=== PATIENT | female | born 1950 | race Caucasian/White ===

== ENCOUNTER 2016-12-02 16:55 | Observation (INO) ==
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
[2016-12-02 18:09] LABS: Basophils # 0.1 K/mcL (0.0-0.2); Basophils % 0.9 %; Eosinophils # 0.1 K/mcL (0.0-0.6); Eosinophils % 1.6 %; Hematocrit 42.3 % (35.3-44.9); Hemoglobin 13.7 g/dL (11.5-15.4); Immature Granulocytes % 0.3 % (0-4); Lymphocytes # 2.2 K/mcL (0.6-4.6); Lymphocytes % 35.2 %; Mean Corpuscular HGB Conc 32.4 g/dL (31.6-35.5); Mean Corpuscular Hemoglobin 28.4 pg (28.0-33.3); Mean Corpuscular Volume 87.6 fL (83.0-100.0); Mean Platelet Volume 9.6 fL (9.4-12.4); Monocytes # 0.5 K/mcL (0.0-1.3); Monocytes % 8.3 %; Neutrophils # 3.4 K/mcL (1.6-8.9); Platelet Count 258 K/mcL (140-400); Red Blood Count 4.83 M/mcL (3.82-4.97); Red Cell Distribution Width 13.4 % (11.5-14.5); Segmented Neutrophils % 53.7 %
[2016-12-02 18:18] LABS: BUN/Creatinine Ratio 46 (6-26); Blood Urea Nitrogen 36 mg/dL (7-20); Calcium 10.1 mg/dL (8.6-10.8); Carbon Dioxide 27 mEq/L (19-29); Chloride 106 mEq/L (98-109); Glucose 83 mg/dL (70-99); Osmolality,Calculated 303 (280-300); Potassium 4.7 mEq/L (3.5-4.5); Sodium 143 mEq/L (136-145); eGFR For African Americans > 60 (> 60); eGFR For Non-African Americans > 60 (> 60)
[2016-12-02 18:19] LABS: Bilirubin,Urine Negative (Negative); Blood,Urine Trace (Negative); Clarity,Urine Clear (Clear); Color,Urine Yellow (Yellow); Glucose,Urine (UA) Normal (Normal); Ketones,Urine Negative (Negative); Leukocyte Esterase,Urine Negative (Negative); Nitrite,Urine Negative (Negative); PH,Urine 5.5 pH Units (5.0-8.0); Protein,Urine Negative (Neg-Trace); Specific Gravity,Urine 1.029 (1.010-1.025); Urobilinogen,Urine Normal (Normal)
[2016-12-02 18:20] LABS: Alanine Aminotransferase 14 Units/L (0-55); Albumin 4.1 g/dL (3.5-5.0); Alkaline Phosphatase 103 Units/L (38-126); Aspartate Amino Transferase 19 Units/L (5-34); Bilirubin,Indirect 0.1 mg/dL (0.0-1.2); Bilirubin,Total 0.2 mg/dL (0.2-1.2); Total Protein 8.1 g/dL (6.0-8.3)
[2016-12-02 18:21] LABS: Bacteria,Urine Few per hpf (None-Few); Hyaline Casts,Urine None Seen per lpf (None-Few); RBC,Urine 0-3 per hpf (0-3); Squamous Epithelial Cell,Urine Many per lpf (None-Few)
[2016-12-02 18:25] LABS: Bilirubin,Direct < 0.1 mg/dL (0.0-0.5)
[2016-12-02] MEDS ORDERED: *HR* LORazepam 2 MG/ML VIAL IVP ONE (19:39)
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
[2016-12-02] MEDS ORDERED: Naloxone 0.4 MG/ML INJ IVP PRN (22:17)
[2016-12-02] MEDS ORDERED: Ondansetron 4 MG/2 ML VIAL IVP PRN (22:17)
[2016-12-02] MEDS ORDERED: 0.9 % Sodium Chloride 1,000 ML IVC SCH (22:45)
[2016-12-02] MEDS: Melatonin 3 MG TABLET PO SCH (23:19)
[2016-12-02] MEDS: clonazePAM 1 MG TABLET PO SCH (23:19)
[2016-12-02] MEDS: Mirtazapine 15 MG TABLET PO SCH (23:19)
[2016-12-02] MEDS: Divalproex (24 HR) 500 MG TABLET PO SCH (23:19)
[2016-12-03 04:59] LABS: Basophils # 0.1 K/mcL (0.0-0.2); Eosinophils # 0.1 K/mcL (0.0-0.6); Eosinophils % 2.8 %; Hematocrit 34.9 % (35.3-44.9); Immature Granulocytes % 0.4 % (0-4); Lymphocytes # 2.3 K/mcL (0.6-4.6); Lymphocytes % 44.9 %; Mean Corpuscular Hemoglobin 28.5 pg (28.0-33.3); Mean Corpuscular Volume 86.4 fL (83.0-100.0); Mean Platelet Volume 9.4 fL (9.4-12.4); Monocytes # 0.5 K/mcL (0.0-1.3); Monocytes % 8.9 %; Neutrophils # 2.1 K/mcL (1.6-8.9); Platelet Count 185 K/mcL (140-400); Red Blood Count 4.04 M/mcL (3.82-4.97); Red Cell Distribution Width 13.5 % (11.5-14.5)
[2016-12-03 05:04] LABS: Hemoglobin 11.5 g/dL (11.5-15.4)
[2016-12-03 05:16] LABS: BUN/Creatinine Ratio 45 (6-26); Blood Urea Nitrogen 29 mg/dL (7-20); Calcium 8.9 mg/dL (8.6-10.8); Carbon Dioxide 23 mEq/L (19-29); Chloride 108 mEq/L (98-109); Glucose 94 mg/dL (70-99); Magnesium 2.1 mg/dL (1.6-2.6); Osmolality,Calculated 292 (280-300); Phosphorous 4.2 mg/dL (2.3-4.7); Sodium 138 mEq/L (136-145); eGFR For African Americans > 60 (> 60); eGFR For Non-African Americans > 60 (> 60)
[2016-12-03] MEDS: Budesonide/Formoterol 160/4.5 MDI IH SCH ×2 (07:46→20:29)
[2016-12-03] MEDS ORDERED: *HR* Rivaroxaban 10 MG TABLET PO SCH (09:00)
[2016-12-03] MEDS: Furosemide 20 MG TABLET PO SCH (10:58)
[2016-12-03] MEDS: Primidone 50 MG TABLET PO SCH (10:58)
[2016-12-03] MEDS: clonazePAM 1 MG TABLET PO SCH ×2 (10:58→14:49)
[2016-12-03] MEDS: Nicotine 21 MG PATCH.TD24 TD SCH (10:58)
[2016-12-03] MEDS: ARIPiprazole 5 MG TABLET PO SCH (10:58)
--- NOTE | 2016-12-03 14:44 | Electrocardiograph Report ---
[facility] Test Date: 2016-12-02 Pat Name: Brenda Ho Department: 102 Room: 3B47 Gender: F Pot Washer: : 1950 Requested By: Nam Rainey Order Number: [id number] Reading MD: Henrietta Martin Measurements Intervals [place] Rate: 80 P: 91 CT: 143 QRS: 50 QRSD: 97 T: 60 QT: 362 QTc: 398 Interpretive Statements SINUS RHYTHM POSSIBLE RIGHT VENTRICULAR CONDUCTION DELAY [RSR (QR) IN V1/V2] Electronically Signed On 12-03-16 14:40:19 EST by Henrietta Martin
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
[2016-12-03] MEDS: Mirtazapine 15 MG TABLET PO SCH (21:19)
[2016-12-03] MEDS: Gabapentin 100 MG CAPSULE PO SCH (21:20)
[2016-12-03] MEDS: Divalproex (24 HR) 500 MG TABLET PO SCH (21:20)
[2016-12-03] MEDS: Melatonin 3 MG TABLET PO SCH (21:20)
[2016-12-03] MEDS: *HR* Rivaroxaban 10 MG TABLET PO SCH (21:25)
[2016-12-04] MEDS: clonazePAM 1 MG TABLET PO SCH ×4 (01:22→21:46)
[2016-12-04 04:50] LABS: Basophils # 0.1 K/mcL (0.0-0.2); Basophils % 1.3 %; Eosinophils # 0.1 K/mcL (0.0-0.6); Eosinophils % 2.3 %; Hematocrit 33.5 % (35.3-44.9); Hemoglobin 10.9 g/dL (11.5-15.4); Immature Granulocytes % 0.2 % (0-4); Lymphocytes # 2.3 K/mcL (0.6-4.6); Lymphocytes % 42.5 %; Mean Corpuscular HGB Conc 32.5 g/dL (31.6-35.5); Mean Corpuscular Hemoglobin 28.8 pg (28.0-33.3); Mean Corpuscular Volume 88.6 fL (83.0-100.0); Mean Platelet Volume 9.5 fL (9.4-12.4); Monocytes # 0.4 K/mcL (0.0-1.3); Monocytes % 8.3 %; Neutrophils # 2.4 K/mcL (1.6-8.9); Platelet Count 191 K/mcL (140-400); Red Blood Count 3.78 M/mcL (3.82-4.97); Red Cell Distribution Width 13.3 % (11.5-14.5); Segmented Neutrophils % 45.4 %
[2016-12-04 05:06] LABS: BUN/Creatinine Ratio 39 (6-26); Blood Urea Nitrogen 26 mg/dL (7-20); Calcium 8.7 mg/dL (8.6-10.8); Carbon Dioxide 24 mEq/L (19-29); Chloride 108 mEq/L (98-109); Glucose 97 mg/dL (70-99); Osmolality,Calculated 293 (280-300); Potassium 4.2 mEq/L (3.5-4.5); Sodium 139 mEq/L (136-145); eGFR For African Americans > 60 (> 60); eGFR For Non-African Americans > 60 (> 60)
[2016-12-04] MEDS: Budesonide/Formoterol 160/4.5 MDI IH SCH ×2 (08:09→22:20)
[2016-12-04] MEDS: Nicotine 21 MG PATCH.TD24 TD SCH (08:51)
[2016-12-04] MEDS: Primidone 50 MG TABLET PO SCH (08:53)
[2016-12-04] MEDS: ARIPiprazole 5 MG TABLET PO SCH (08:53)
[2016-12-04] MEDS: Furosemide 20 MG TABLET PO SCH (08:54)
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
[2016-12-04] MEDS: *HR* Rivaroxaban 10 MG TABLET PO SCH (18:23)
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
[2016-12-04] MEDS: Melatonin 3 MG TABLET PO SCH (21:45)
[2016-12-04] MEDS: Gabapentin 100 MG CAPSULE PO SCH (21:45)
[2016-12-04] MEDS: Mirtazapine 15 MG TABLET PO SCH (21:45)
[2016-12-04] MEDS: Divalproex (24 HR) 500 MG TABLET PO SCH (21:45)
[2016-12-05] MEDS: Budesonide/Formoterol 160/4.5 MDI IH SCH (08:34)
[2016-12-05] MEDS: Furosemide 20 MG TABLET PO SCH (09:18)
[2016-12-05] MEDS: Nicotine 21 MG PATCH.TD24 TD SCH (09:18)
[2016-12-05] MEDS: clonazePAM 1 MG TABLET PO SCH ×2 (09:18→15:30)
[2016-12-05] MEDS: ARIPiprazole 5 MG TABLET PO SCH (09:18)
[2016-12-05] MEDS: Primidone 50 MG TABLET PO SCH (09:27)
[2016-12-05 16:01] VITALS: BP 111/76
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
== END 2016-12-05 18:06 | disposition home or self-care (01) ==
LOC: 3BNU 16:55 → EMEROO 16:55 → SUATTDRO 21:06 → 3BNU 21:30
PROVIDERS: ADMIT Internal Medicine; ATTEND Internal Medicine

== ENCOUNTER 2020-12-03 08:04 | Inpatient (IN) ==
[2020-12-03] MEDS ORDERED: Ondansetron 4 MG/2 ML VIAL IVP PRN (09:43)
[2020-12-03] MEDS ORDERED: Naloxone 0.4 MG/ML INJ IVP PRN (09:43)
[2020-12-03] MEDS ORDERED: Perflutren Lipid Microsphere 1.3 ML in 0.9 % Sodium Chloride 8.7 ML IVP PRN (09:44)
[2020-12-03] MEDS: Furosemide 20 MG/2 ML VIAL IVP SCH ×2 (10:39→17:04)
[2020-12-03] MEDS ORDERED: Digoxin Oral Liquid 125 MCG/2.5 ML ORAL.SYG GTUBE ONE (11:15)
[2020-12-03] MEDS: Ipratropium Neb 0.5 MG NEBULIZER IH SCH ×3 (11:39→21:20)
[2020-12-03] MEDS ORDERED: polyethylene glycoL 3350 17 GM POWD.PACK GTUBE PRN (11:53)
[2020-12-03] MEDS: clonazePAM 1 MG TABLET GTUBE SCH ×2 (14:32→20:49)
[2020-12-03] MEDS: *HR* OxyCODONE Immed Rel 5 MG TABLET GTUBE SCH ×2 (14:32→20:50)
[2020-12-03 19:16] LABS: Adenovirus Not Detected (Not Detect); Bordetella Pertussis Not Detected (Not Detect); Chlamydophila pneumoniae Not Detected (Not Detect); Coronavirus 229E Not Detected (Not Detect); Coronavirus HKU1 Not Detected (Not Detect); Coronavirus NL63 Not Detected (Not Detect); Coronavirus OC43 Not Detected (Not Detect); Human Metapneumovirus Not Detected (Not Detect); Human Rhinovirus/Enterovirus Not Detected (Not Detect); Influenza A Subtype 2009 H1 Not Detected (Not Detect); Influenza B Not Detected (Not Detect); Mycoplasma pneumoniae Not Detected (Not Detect); Parainfluenza Virus 1 Not Detected (Not Detect); Parainfluenza Virus 2 Not Detected (Not Detect); Parainfluenza Virus 3 Not Detected (Not Detect); Parainfluenza Virus 4 Not Detected (Not Detect); Respiratory Syncytial Virus Not Detected (Not Detect); SARS-CoV-2 Not Detected (Not Detect)
[2020-12-03] MEDS: Baclofen 10 MG TABLET GTUBE SCH (20:49)
[2020-12-03] MEDS: Valproic Acid Oral Soln 250 MG/5 ML UDC GTUBE SCH (20:49)
[2020-12-03] MEDS: Melatonin 3 MG TABLET GTUBE SCH (20:50)
[2020-12-03] MEDS: traZODone 50 MG TABLET GTUBE SCH (20:50)
[2020-12-03] MEDS: Famotidine 20 MG TABLET GTUBE SCH (20:50)
[2020-12-03] MEDS: Magnesium Oxide 400 MG TABLET GTUBE SCH (20:51)
[2020-12-03] MEDS: Apixaban 5 MG TABLET GTUBE SCH (20:51)
[2020-12-03] MEDS: HydrOXYzine SYP 10 MG/5 ML UDC GTUBE SCH (20:51)
[2020-12-03] MEDS ORDERED: Furosemide 20 MG/2 ML VIAL IVP SCH (21:00)
[2020-12-04] MEDS: Ipratropium Neb 0.5 MG NEBULIZER IH SCH ×4 (03:23→22:16)
[2020-12-04 06:54] LABS: Basophils # 0.1 K/mcL (0.0-0.2); Eosinophils # 0.1 K/mcL (0.0-0.6); Eosinophils % 1.3 %; Hematocrit 42.4 % (35.3-44.9); Hemoglobin 13.6 g/dL (11.5-15.4); Immature Granulocytes % 0.3 % (0-4); Lymphocytes % 22.6 %; Mean Corpuscular HGB Conc 32.1 g/dL (31.6-35.5); Mean Corpuscular Volume 96.6 fL (83.0-100.0); Mean Platelet Volume 11.3 fL (9.4-12.4); Monocytes # 0.9 K/mcL (0.0-1.3); Monocytes % 9.9 %; Neutrophils # 5.6 K/mcL (1.6-8.9); Platelet Count 206 K/mcL (140-400); Red Blood Count 4.39 M/mcL (3.82-4.97); Red Cell Distribution Width 13.5 % (11.5-14.5); Segmented Neutrophils % 64.9 %; White Blood Count 8.6 K/mcL (4.3-11.1)
[2020-12-04 07:26] LABS: BUN/Creatinine Ratio 70 (6-26); Blood Urea Nitrogen 35 mg/dL (8-23); Calcium 9.2 mg/dL (8.6-10.3); Carbon Dioxide 33 mEq/L (23-29); Chloride 95 mEq/L (98-107); Glucose 135 mg/dL (70-105); Osmolality,Calculated 294 (280-300); Potassium 3.7 mEq/L (3.5-5.1); Sodium 137 mEq/L (136-145); eGFR For African Americans > 60 (> 60); eGFR For Non-African Americans > 60 (> 60)
[2020-12-04] MEDS: Valproic Acid Oral Soln 250 MG/5 ML UDC GTUBE SCH (09:18)
[2020-12-04] MEDS: clonazePAM 1 MG TABLET GTUBE SCH ×2 (09:21→15:35)
[2020-12-04] MEDS: *HR* Digoxin 0.125 MG TABLET GTUBE SCH (09:21)
[2020-12-04] MEDS: Magnesium Oxide 400 MG TABLET GTUBE SCH (09:21)
[2020-12-04] MEDS: Furosemide 20 MG/2 ML VIAL IVP SCH ×2 (09:22→15:34)
[2020-12-04] MEDS: Apixaban 5 MG TABLET GTUBE SCH (09:22)
[2020-12-04] MEDS: HydrOXYzine SYP 10 MG/5 ML UDC GTUBE SCH (09:22)
[2020-12-04] MEDS: Baclofen 10 MG TABLET GTUBE SCH (09:22)
[2020-12-04] MEDS: *HR* OxyCODONE Immed Rel 5 MG TABLET GTUBE SCH ×2 (09:22→15:35)
[2020-12-04] MEDS ORDERED: *HR* Metoprolol 5 MG/5 ML VIAL IVP ONE (10:57)
[2020-12-04] MEDS ORDERED: *HR* LORazepam 2 MG/ML VIAL IVP STA (17:07)
[2020-12-04 17:56] LABS: VBG HCO3 41 mEq/L (21-27); VBG PCO2 67 mmHg (41-51); VBG PH 7.39 pH Units (7.32-7.42); VBG PO2 79 mmHg (25-50)
[2020-12-04] MEDS ORDERED: MethylPREDNISolone 40 MG/ML VIAL IVP STA (17:57)
[2020-12-04] MEDS ORDERED: Haloperidol Lactate 5 MG/ML VIAL IVP ONE (18:21)
[2020-12-04] MEDS: Dexmedetomidine HCl 400 MCG/100 ML MLS IVC SCH (19:20)
[2020-12-04] MEDS: Levalbuterol Neb 1.25 MG/3 ML IH SCH ×2 (19:54→22:16)
[2020-12-04] MEDS ORDERED: 0.9 % Sodium Chloride 1,000 ML IVC SCH (20:15)
[2020-12-04] MEDS ORDERED: E-Z-PAQUE (BARIUM SULF) SUSP 1 BOTTLE PO ONE (21:37)
[2020-12-04] MEDS ORDERED: E-Z-HD (BARIUM SULF) SUSPENSION PO ONE (21:37)
[2020-12-05] MEDS: Famotidine 20 MG TABLET GTUBE SCH ×2 (00:44→21:10)
[2020-12-05] MEDS: Apixaban 5 MG TABLET GTUBE SCH ×3 (00:45→21:09)
[2020-12-05] MEDS: Magnesium Oxide 400 MG TABLET GTUBE SCH ×3 (00:45→21:11)
[2020-12-05] MEDS: clonazePAM 1 MG TABLET GTUBE SCH ×4 (00:45→21:13)
[2020-12-05] MEDS: traZODone 50 MG TABLET GTUBE SCH ×2 (00:45→21:12)
[2020-12-05] MEDS: Baclofen 10 MG TABLET GTUBE SCH ×3 (00:47→21:08)
[2020-12-05] MEDS: Valproic Acid Oral Soln 250 MG/5 ML UDC GTUBE SCH ×3 (00:48→21:04)
[2020-12-05 00:55] LABS: Basophils # 0.1 K/mcL (0.0-0.2); Basophils % 0.7 %; Eosinophils # 0.2 K/mcL (0.0-0.6); Eosinophils % 2.4 %; Hematocrit 39.2 % (35.3-44.9); Hemoglobin 12.6 g/dL (11.5-15.4); Immature Granulocytes % 0.2 % (0-4); Lymphocytes # 1.8 K/mcL (0.6-4.6); Lymphocytes % 22.5 %; Mean Corpuscular HGB Conc 32.1 g/dL (31.6-35.5); Mean Corpuscular Hemoglobin 30.7 pg (28.0-33.3); Mean Corpuscular Volume 95.6 fL (83.0-100.0); Mean Platelet Volume 10.9 fL (9.4-12.4); Monocytes % 12.3 %; Platelet Count 185 K/mcL (140-400); Red Cell Distribution Width 13.2 % (11.5-14.5); Segmented Neutrophils % 61.9 %; White Blood Count 8.1 K/mcL (4.3-11.1)
[2020-12-05] MEDS: Melatonin 3 MG TABLET GTUBE SCH ×2 (00:57→21:12)
[2020-12-05] MEDS: *HR* OxyCODONE Immed Rel 5 MG TABLET GTUBE SCH ×4 (00:58→21:13)
[2020-12-05] MEDS: HydrOXYzine SYP 10 MG/5 ML UDC GTUBE SCH ×3 (01:13→21:05)
[2020-12-05 01:16] LABS: BUN/Creatinine Ratio 64 (6-26); Blood Urea Nitrogen 34 mg/dL (8-23); Calcium 8.6 mg/dL (8.6-10.3); Carbon Dioxide 40 mEq/L (23-29); Chloride 94 mEq/L (98-107); Glucose 105 mg/dL (70-105); Osmolality,Calculated 298 (280-300); Potassium 3.7 mEq/L (3.5-5.1); Sodium 140 mEq/L (136-145); eGFR For African Americans > 60 (> 60); eGFR For Non-African Americans > 60 (> 60)
[2020-12-05] MEDS: Levalbuterol Neb 1.25 MG/3 ML IH SCH ×4 (03:25→22:23)
[2020-12-05] MEDS: Ipratropium Neb 0.5 MG NEBULIZER IH SCH ×4 (03:25→22:23)
[2020-12-05] MEDS: Furosemide 20 MG/2 ML VIAL IVP SCH ×2 (10:09→17:27)
[2020-12-05] MEDS: Dexmedetomidine HCl 400 MCG/100 ML MLS IVC SCH (18:37)
[2020-12-06 01:41] LABS: Basophils % 0.3 %; Eosinophils # 0.2 K/mcL (0.0-0.6); Eosinophils % 1.7 %; Hematocrit 41.8 % (35.3-44.9); Hemoglobin 13.3 g/dL (11.5-15.4); Immature Granulocytes % 0.3 % (0-4); Lymphocytes # 2.2 K/mcL (0.6-4.6); Lymphocytes % 19.9 %; Mean Corpuscular HGB Conc 31.8 g/dL (31.6-35.5); Mean Corpuscular Hemoglobin 30.2 pg (28.0-33.3); Mean Platelet Volume 11.3 fL (9.4-12.4); Monocytes % 9.1 %; Neutrophils # 7.5 K/mcL (1.6-8.9); Platelet Count 204 K/mcL (140-400); Red Cell Distribution Width 13.2 % (11.5-14.5); Segmented Neutrophils % 68.7 %
[2020-12-06 02:00] LABS: BUN/Creatinine Ratio 70 (6-26); Blood Urea Nitrogen 32 mg/dL (8-23); Calcium 8.6 mg/dL (8.6-10.3); Carbon Dioxide 38 mEq/L (23-29); Chloride 93 mEq/L (98-107); Glucose 119 mg/dL (70-105); Osmolality,Calculated 294 (280-300); Potassium 3.7 mEq/L (3.5-5.1); Sodium 138 mEq/L (136-145); eGFR For African Americans > 60 (> 60); eGFR For Non-African Americans > 60 (> 60)
[2020-12-06] MEDS: Ipratropium Neb 0.5 MG NEBULIZER IH SCH ×4 (03:53→22:03)
[2020-12-06] MEDS: Levalbuterol Neb 1.25 MG/3 ML IH SCH ×4 (03:53→22:03)
[2020-12-06] MEDS: Furosemide 20 MG/2 ML VIAL IVP SCH ×2 (08:57→15:42)
[2020-12-06] MEDS: Valproic Acid Oral Soln 250 MG/5 ML UDC GTUBE SCH ×2 (08:57→20:46)
[2020-12-06] MEDS: Baclofen 10 MG TABLET GTUBE SCH ×2 (08:58→20:44)
[2020-12-06] MEDS: Magnesium Oxide 400 MG TABLET GTUBE SCH ×2 (08:59→20:43)
[2020-12-06] MEDS: clonazePAM 1 MG TABLET GTUBE SCH ×3 (08:59→20:44)
[2020-12-06] MEDS: Apixaban 5 MG TABLET GTUBE SCH ×2 (08:59→20:44)
[2020-12-06] MEDS: *HR* OxyCODONE Immed Rel 5 MG TABLET GTUBE SCH ×3 (08:59→20:43)
[2020-12-06] MEDS: HydrOXYzine SYP 10 MG/5 ML UDC GTUBE SCH ×2 (09:00→20:47)
[2020-12-06] MEDS ORDERED: Bisacodyl 10 MG RECTAL SUPPOSITORY RC PRN (13:34)
[2020-12-06] MEDS: traZODone 50 MG TABLET GTUBE SCH (20:43)
[2020-12-06] MEDS: Famotidine 20 MG TABLET GTUBE SCH (20:43)
[2020-12-06] MEDS: Melatonin 3 MG TABLET GTUBE SCH (20:44)
[2020-12-07] MEDS: Dexmedetomidine HCl 400 MCG/100 ML MLS IVC SCH (03:24)
[2020-12-07] MEDS: Levalbuterol Neb 1.25 MG/3 ML IH SCH ×4 (04:16→22:24)
[2020-12-07] MEDS: Ipratropium Neb 0.5 MG NEBULIZER IH SCH ×4 (04:16→22:24)
[2020-12-07] MEDS ORDERED: *HR* Metoprolol 5 MG/5 ML VIAL IVP ONE (05:12)
[2020-12-07] MEDS: HydrOXYzine SYP 10 MG/5 ML UDC GTUBE SCH ×2 (09:05→20:05)
[2020-12-07] MEDS: Furosemide 20 MG/2 ML VIAL IVP SCH ×2 (09:06→16:49)
[2020-12-07] MEDS: Baclofen 10 MG TABLET GTUBE SCH ×2 (09:07→20:03)
[2020-12-07] MEDS: Valproic Acid Oral Soln 250 MG/5 ML UDC GTUBE SCH ×2 (09:07→20:04)
[2020-12-07] MEDS: Magnesium Oxide 400 MG TABLET GTUBE SCH ×2 (09:07→20:02)
[2020-12-07] MEDS: *HR* OxyCODONE Immed Rel 5 MG TABLET GTUBE SCH ×3 (09:08→20:02)
[2020-12-07] MEDS: clonazePAM 1 MG TABLET GTUBE SCH ×3 (09:08→20:03)
[2020-12-07] MEDS: Apixaban 5 MG TABLET GTUBE SCH ×2 (09:08→20:03)
[2020-12-07] MEDS: *HR* Digoxin 0.125 MG TABLET GTUBE SCH (09:17)
[2020-12-07 12:43] LABS: Hematocrit 43.2 % (35.3-44.9); Hemoglobin 13.9 g/dL (11.5-15.4); Mean Corpuscular HGB Conc 32.2 g/dL (31.6-35.5); Mean Corpuscular Hemoglobin 29.8 pg (28.0-33.3); Mean Corpuscular Volume 92.7 fL (83.0-100.0); Mean Platelet Volume 11.1 fL (9.4-12.4); Platelet Count 248 K/mcL (140-400); Red Blood Count 4.66 M/mcL (3.82-4.97); Red Cell Distribution Width 13.3 % (11.5-14.5)
[2020-12-07 12:45] LABS: White Blood Count 18.6 K/mcL (4.3-11.1)
[2020-12-07 13:19] LABS: Alanine Aminotransferase 13 Units/L (7-52); Albumin 3.5 g/dL (3.5-5.7); Albumin/Globulin Ratio 1.3 (1.1-2.2); Alkaline Phosphatase 61 Units/L (34-104); Aspartate Amino Transferase 18 Units/L (13-39); BUN/Creatinine Ratio 56 (6-26); Bilirubin,Total 0.5 mg/dL (0.3-1.0); Blood Urea Nitrogen 22 mg/dL (8-23); Carbon Dioxide 39 mEq/L (23-29); Chloride 89 mEq/L (98-107); Globulin 2.8 g/dL (2.4-3.5); Glucose 166 mg/dL (70-105); Osmolality,Calculated 287 (280-300); Potassium 3.2 mEq/L (3.5-5.1); Sodium 135 mEq/L (136-145); Total Protein 6.3 g/dL (6.4-8.9); eGFR For African Americans > 60 (> 60); eGFR For Non-African Americans > 60 (> 60)
[2020-12-07] MEDS ORDERED: Potassium Chloride 40 MEQ, Lidocaine 1% 2 ML in 0.9 % Sodium Chloride 500 ML IVPB ONE (13:52)
[2020-12-07] MEDS ORDERED: Potassium Chloride Elixir 20 MEQ/15 ML UDC GTUBE ONE (14:02)
[2020-12-07 16:56] LABS: Lactate Dehydrogenase 210 Units/L (140-271)
[2020-12-07] MEDS: Famotidine 20 MG TABLET GTUBE SCH (20:02)
[2020-12-07] MEDS: traZODone 50 MG TABLET GTUBE SCH (20:03)
[2020-12-07] MEDS: Melatonin 3 MG TABLET GTUBE SCH (20:03)
[2020-12-08 01:10] LABS: Hematocrit 43.1 % (35.3-44.9); Mean Corpuscular HGB Conc 32.5 g/dL (31.6-35.5); Mean Corpuscular Hemoglobin 30.6 pg (28.0-33.3); Mean Corpuscular Volume 94.3 fL (83.0-100.0); Mean Platelet Volume 11.1 fL (9.4-12.4); Platelet Count 253 K/mcL (140-400); Red Blood Count 4.57 M/mcL (3.82-4.97); Red Cell Distribution Width 13.3 % (11.5-14.5)
[2020-12-08 01:31] LABS: Albumin 3.4 g/dL (3.5-5.7); Albumin/Globulin Ratio 1.2 (1.1-2.2); Bilirubin,Direct 0.1 mg/dL (0.0-0.2); Bilirubin,Indirect 0.3 mg/dL (0.0-1.0); Bilirubin,Total 0.4 mg/dL (0.3-1.0); Globulin 2.9 g/dL (2.4-3.5); Total Protein 6.3 g/dL (6.4-8.9)
[2020-12-08 01:32] LABS: BUN/Creatinine Ratio 59 (6-26); Blood Urea Nitrogen 26 mg/dL (8-23); Carbon Dioxide 36 mEq/L (23-29); Chloride 91 mEq/L (98-107); Glucose 131 mg/dL (70-105); Osmolality,Calculated 289 (280-300); Potassium 3.3 mEq/L (3.5-5.1); Sodium 136 mEq/L (136-145); eGFR For African Americans > 60 (> 60); eGFR For Non-African Americans > 60 (> 60)
[2020-12-08] MEDS: Levalbuterol Neb 1.25 MG/3 ML IH SCH ×4 (04:26→23:10)
[2020-12-08] MEDS: Ipratropium Neb 0.5 MG NEBULIZER IH SCH ×4 (04:26→23:10)
[2020-12-08] MEDS: Valproic Acid Oral Soln 250 MG/5 ML UDC GTUBE SCH ×2 (09:08→20:26)
[2020-12-08] MEDS: Psyllium 1 PACKET POWD.PACK GTUBE SCH ×3 (09:09→20:27)
[2020-12-08] MEDS: HydrOXYzine SYP 10 MG/5 ML UDC GTUBE SCH ×2 (09:09→20:21)
[2020-12-08] MEDS: *HR* OxyCODONE Immed Rel 5 MG TABLET GTUBE SCH ×3 (09:11→20:27)
[2020-12-08] MEDS: Magnesium Oxide 400 MG TABLET GTUBE SCH ×2 (09:12→20:26)
[2020-12-08] MEDS: Apixaban 5 MG TABLET GTUBE SCH ×2 (09:12→20:22)
[2020-12-08] MEDS: clonazePAM 1 MG TABLET GTUBE SCH ×3 (09:12→20:22)
[2020-12-08] MEDS: Baclofen 10 MG TABLET GTUBE SCH ×2 (09:12→20:26)
[2020-12-08] MEDS: Furosemide 20 MG/2 ML VIAL IVP SCH ×2 (09:13→17:20)
[2020-12-08] MEDS ORDERED: Potassium Chloride Elixir 20 MEQ/15 ML UDC GTUBE ONE (14:31)
[2020-12-08] MEDS: Famotidine 20 MG TABLET GTUBE SCH (20:21)
[2020-12-08] MEDS: Melatonin 3 MG TABLET GTUBE SCH (20:26)
[2020-12-08] MEDS: traZODone 50 MG TABLET GTUBE SCH (20:27)
[2020-12-09 01:33] LABS: Hematocrit 42.2 % (35.3-44.9); Hemoglobin 13.5 g/dL (11.5-15.4); Mean Corpuscular Hemoglobin 29.9 pg (28.0-33.3); Mean Corpuscular Volume 93.4 fL (83.0-100.0); Mean Platelet Volume 11.2 fL (9.4-12.4); Platelet Count 249 K/mcL (140-400); Red Blood Count 4.52 M/mcL (3.82-4.97); Red Cell Distribution Width 13.2 % (11.5-14.5); White Blood Count 11.3 K/mcL (4.3-11.1)
[2020-12-09 01:54] LABS: Alanine Aminotransferase 16 Units/L (7-52); Albumin 3.3 g/dL (3.5-5.7); Albumin/Globulin Ratio 1.1 (1.1-2.2); Alkaline Phosphatase 62 Units/L (34-104); Aspartate Amino Transferase 20 Units/L (13-39); BUN/Creatinine Ratio 63 (6-26); Bilirubin,Total 0.3 mg/dL (0.3-1.0); Blood Urea Nitrogen 31 mg/dL (8-23); Carbon Dioxide 35 mEq/L (23-29); Chloride 93 mEq/L (98-107); Globulin 2.9 g/dL (2.4-3.5); Glucose 132 mg/dL (70-105); Osmolality,Calculated 292 (280-300); Potassium 3.5 mEq/L (3.5-5.1); Sodium 137 mEq/L (136-145); Total Protein 6.2 g/dL (6.4-8.9); eGFR For African Americans > 60 (> 60); eGFR For Non-African Americans > 60 (> 60)
[2020-12-09] MEDS: Levalbuterol Neb 1.25 MG/3 ML IH SCH ×4 (03:53→22:46)
[2020-12-09] MEDS: Ipratropium Neb 0.5 MG NEBULIZER IH SCH ×4 (03:53→22:46)
[2020-12-09] MEDS: Magnesium Oxide 400 MG TABLET GTUBE SCH ×2 (10:28→20:41)
[2020-12-09] MEDS: clonazePAM 1 MG TABLET GTUBE SCH ×3 (10:28→20:42)
[2020-12-09] MEDS: Apixaban 5 MG TABLET GTUBE SCH ×2 (10:29→20:42)
[2020-12-09] MEDS: *HR* OxyCODONE Immed Rel 5 MG TABLET GTUBE SCH ×3 (10:29→20:42)
[2020-12-09] MEDS: Baclofen 10 MG TABLET GTUBE SCH ×2 (10:29→20:41)
[2020-12-09] MEDS: Valproic Acid Oral Soln 250 MG/5 ML UDC GTUBE SCH ×2 (10:29→20:43)
[2020-12-09] MEDS: Furosemide 20 MG/2 ML VIAL IVP SCH ×2 (10:30→17:49)
[2020-12-09] MEDS: HydrOXYzine SYP 10 MG/5 ML UDC GTUBE SCH ×2 (10:30→20:42)
[2020-12-09] MEDS: Psyllium 1 PACKET POWD.PACK GTUBE SCH ×3 (13:31→20:42)
[2020-12-09] MEDS: traZODone 50 MG TABLET GTUBE SCH (20:41)
[2020-12-09] MEDS: Melatonin 3 MG TABLET GTUBE SCH (20:41)
[2020-12-09] MEDS: Famotidine 20 MG TABLET GTUBE SCH (20:41)
[2020-12-10 01:37] LABS: Hematocrit 41.7 % (35.3-44.9); Hemoglobin 13.5 g/dL (11.5-15.4); Mean Corpuscular HGB Conc 32.4 g/dL (31.6-35.5); Mean Corpuscular Hemoglobin 30.6 pg (28.0-33.3); Mean Corpuscular Volume 94.6 fL (83.0-100.0); Mean Platelet Volume 10.9 fL (9.4-12.4); Platelet Count 246 K/mcL (140-400); Red Blood Count 4.41 M/mcL (3.82-4.97); White Blood Count 12.2 K/mcL (4.3-11.1)
[2020-12-10 01:54] LABS: BUN/Creatinine Ratio 70 (6-26); Blood Urea Nitrogen 30 mg/dL (8-23); Calcium 9.1 mg/dL (8.6-10.3); Carbon Dioxide 36 mEq/L (23-29); Chloride 92 mEq/L (98-107); Glucose 129 mg/dL (70-105); Osmolality,Calculated 286 (280-300); Potassium 3.5 mEq/L (3.5-5.1); Sodium 134 mEq/L (136-145); eGFR For African Americans > 60 (> 60); eGFR For Non-African Americans > 60 (> 60)
[2020-12-10] MEDS: Levalbuterol Neb 1.25 MG/3 ML IH SCH ×4 (03:49→22:03)
[2020-12-10] MEDS: Ipratropium Neb 0.5 MG NEBULIZER IH SCH ×4 (03:49→22:03)
[2020-12-10] MEDS: Magnesium Oxide 400 MG TABLET GTUBE SCH ×2 (08:04→20:23)
[2020-12-10] MEDS: Baclofen 10 MG TABLET GTUBE SCH ×2 (08:05→20:23)
[2020-12-10] MEDS: clonazePAM 1 MG TABLET GTUBE SCH ×3 (08:05→20:24)
[2020-12-10] MEDS: *HR* OxyCODONE Immed Rel 5 MG TABLET GTUBE SCH ×3 (08:06→20:24)
[2020-12-10] MEDS: Apixaban 5 MG TABLET GTUBE SCH ×2 (08:06→20:23)
[2020-12-10] MEDS: HydrOXYzine SYP 10 MG/5 ML UDC GTUBE SCH ×2 (08:08→20:26)
[2020-12-10] MEDS: Valproic Acid Oral Soln 250 MG/5 ML UDC GTUBE SCH ×2 (08:08→20:26)
[2020-12-10] MEDS: Psyllium 1 PACKET POWD.PACK GTUBE SCH ×3 (08:10→20:26)
[2020-12-10] MEDS: Furosemide 20 MG/2 ML VIAL IVP SCH ×2 (08:10→17:57)
[2020-12-10] MEDS: Famotidine 20 MG TABLET GTUBE SCH (20:23)
[2020-12-10] MEDS: Melatonin 3 MG TABLET GTUBE SCH (20:25)
[2020-12-10] MEDS: traZODone 50 MG TABLET GTUBE SCH (20:27)
[2020-12-11] MEDS: Levalbuterol Neb 1.25 MG/3 ML IH SCH ×4 (03:39→21:58)
[2020-12-11] MEDS: Ipratropium Neb 0.5 MG NEBULIZER IH SCH ×4 (03:39→21:58)
[2020-12-11] MEDS: Psyllium 1 PACKET POWD.PACK GTUBE SCH ×3 (09:17→21:17)
[2020-12-11] MEDS: Furosemide 20 MG/2 ML VIAL IVP SCH ×2 (09:20→18:48)
[2020-12-11] MEDS: *HR* Digoxin 0.125 MG TABLET GTUBE SCH (09:23)
[2020-12-11] MEDS: Magnesium Oxide 400 MG TABLET GTUBE SCH ×2 (09:23→21:19)
[2020-12-11] MEDS: Valproic Acid Oral Soln 250 MG/5 ML UDC GTUBE SCH ×2 (09:23→21:17)
[2020-12-11] MEDS: Baclofen 10 MG TABLET GTUBE SCH ×2 (09:24→21:19)
[2020-12-11] MEDS: *HR* OxyCODONE Immed Rel 5 MG TABLET GTUBE SCH ×3 (09:25→21:19)
[2020-12-11] MEDS: Apixaban 5 MG TABLET GTUBE SCH ×2 (09:25→21:19)
[2020-12-11] MEDS: HydrOXYzine SYP 10 MG/5 ML UDC GTUBE SCH ×2 (09:25→21:16)
[2020-12-11] MEDS: clonazePAM 1 MG TABLET GTUBE SCH ×3 (09:25→21:18)
[2020-12-11 17:37] LABS: Adenovirus Not Detected (Not Detect); Bordetella Pertussis Not Detected (Not Detect); Chlamydophila pneumoniae Not Detected (Not Detect); Coronavirus 229E Not Detected (Not Detect); Coronavirus HKU1 Not Detected (Not Detect); Coronavirus NL63 Not Detected (Not Detect); Coronavirus OC43 Not Detected (Not Detect); Human Metapneumovirus Not Detected (Not Detect); Human Rhinovirus/Enterovirus Not Detected (Not Detect); Influenza A Subtype 2009 H1 Not Detected (Not Detect); Influenza B Not Detected (Not Detect); Mycoplasma pneumoniae Not Detected (Not Detect); Parainfluenza Virus 1 Not Detected (Not Detect); Parainfluenza Virus 2 Not Detected (Not Detect); Parainfluenza Virus 3 Not Detected (Not Detect); Parainfluenza Virus 4 Not Detected (Not Detect); Respiratory Syncytial Virus Not Detected (Not Detect); SARS-CoV-2 Not Detected (Not Detect)
[2020-12-11] MEDS: Famotidine 20 MG TABLET GTUBE SCH (21:19)
[2020-12-11 21:20] VITALS: BP 95/88
[2020-12-11] MEDS: traZODone 50 MG TABLET GTUBE SCH (21:20)
[2020-12-11] MEDS: Melatonin 3 MG TABLET GTUBE SCH (21:20)
== END 2020-12-11 23:20 | DRG 871 ==
LOC: 2ANU 09:34 → INTOOBSV 09:34 → 2NNU 12-04 19:16
PROVIDERS: ADMIT Internal Medicine; ATTEND Internal Medicine

== ENCOUNTER 2020-12-25 09:14 | Inpatient (IN) ==
[2020-12-25 10:05] LABS: ABG Base Excess 8 mEq/L (-2 to 3); ABG HCO3 36 mEq/L (21-27); ABG Oxygen Saturation 90 % (95-98); ABG PCO2 66 mmHg (35-45); ABG PH 7.35 pH Units (7.32-7.45); ABG PO2 65 mmHg (85-104); ABG TCO2 38 mEq/L (20-26)
[2020-12-25 10:31] LABS: Basophils # 0.1 K/mcL (0.0-0.2); Basophils % 0.4 %; Eosinophils % 0.3 %; Hemoglobin 12.5 g/dL (11.5-15.4); Immature Granulocytes % 0.3 % (0-4); Lymphocytes # 1.8 K/mcL (0.6-4.6); Lymphocytes % 15.2 %; Mean Corpuscular HGB Conc 32.1 g/dL (31.6-35.5); Mean Corpuscular Hemoglobin 30.5 pg (28.0-33.3); Mean Corpuscular Volume 95.1 fL (83.0-100.0); Mean Platelet Volume 10.1 fL (9.4-12.4); Monocytes # 0.8 K/mcL (0.0-1.3); Monocytes % 6.7 %; Neutrophils # 8.9 K/mcL (1.6-8.9); Nucleated Red Blood Cells 0.2 /100 WBC (0); Platelet Count 295 K/mcL (140-400); Red Cell Distribution Width 13.1 % (11.5-14.5); Segmented Neutrophils % 77.1 %; White Blood Count 11.6 K/mcL (4.3-11.1)
[2020-12-25 10:53] LABS: BUN/Creatinine Ratio 43 (6-26); Blood Urea Nitrogen 20 mg/dL (8-23); Calcium 8.7 mg/dL (8.6-10.3); Carbon Dioxide 31 mEq/L (23-29); Chloride 96 mEq/L (98-107); Glucose 158 mg/dL (70-105); Osmolality,Calculated 282 (280-300); Potassium 5.1 mEq/L (3.5-5.1); Sodium 133 mEq/L (136-145); Troponin I 0.03 ng/mL (< 0.04); eGFR For African Americans > 60 (> 60); eGFR For Non-African Americans > 60 (> 60)
[2020-12-25] MEDS ORDERED: Furosemide 40 MG/4 ML VIAL IVP ONE (11:25)
[2020-12-25] MEDS ORDERED: levoFLOXacin 750 MG/150 ML 750 MG/150 ML BAG IVPB ONE (11:25)
[2020-12-25] MEDS ORDERED: Naloxone 0.4 MG/ML INJ IVP PRN (11:43)
[2020-12-25] MEDS: Dexmedetomidine HCl 400 MCG/100 ML MLS IVC SCH (12:27)
[2020-12-25 14:42] LABS: Adenovirus Not Detected (Not Detect); Bordetella Pertussis Not Detected (Not Detect); Chlamydophila pneumoniae Not Detected (Not Detect); Coronavirus 229E Not Detected (Not Detect); Coronavirus HKU1 Not Detected (Not Detect); Coronavirus NL63 Not Detected (Not Detect); Coronavirus OC43 Not Detected (Not Detect); Human Metapneumovirus Not Detected (Not Detect); Human Rhinovirus/Enterovirus Not Detected (Not Detect); Influenza A Subtype 2009 H1 Not Detected (Not Detect); Influenza B Not Detected (Not Detect); Mycoplasma pneumoniae Not Detected (Not Detect); Parainfluenza Virus 1 Not Detected (Not Detect); Parainfluenza Virus 2 Not Detected (Not Detect); Parainfluenza Virus 3 Not Detected (Not Detect); Parainfluenza Virus 4 Not Detected (Not Detect); Respiratory Syncytial Virus Not Detected (Not Detect); SARS-CoV-2 Not Detected (Not Detect)
[2020-12-25] MEDS: Ipratropium 1 PUFF INHALER IH SCH ×3 (16:00→22:12)
[2020-12-25] MEDS ORDERED: Isovue-370 500 ML BOTTLE IVP ONE (16:52)
[2020-12-25] MEDS: clonazePAM 1 MG TABLET GTUBE SCH ×2 (16:57→21:44)
[2020-12-25] MEDS: MethylPREDNISolone 40 MG/ML VIAL IVP SCH ×2 (17:27→18:37)
[2020-12-25] MEDS: traZODone 50 MG TABLET GTUBE SCH (21:43)
[2020-12-25] MEDS: Baclofen 10 MG TABLET GTUBE SCH (21:44)
[2020-12-25] MEDS: Furosemide 40 MG/4 ML VIAL IVP SCH (21:44)
[2020-12-25] MEDS: Apixaban 5 MG TABLET GTUBE SCH (21:44)
[2020-12-25 22:11] LABS: Amorphous Sediment,Urine Few per hpf (None-Few); Bilirubin,Urine Negative (Negative); Blood,Urine Trace (Negative); Clarity,Urine Clear (Clear); Color,Urine Light-Yellow (Yellow); Glucose,Urine (UA) Normal (Normal); Ketones,Urine Negative (Negative); Leukocyte Esterase,Urine Large (Negative); Mucus,Urine Few per lpf (None-Few); Nitrite,Urine Negative (Negative); PH,Urine 8.5 pH Units (5.0-8.0); Protein,Urine 30 mg/dL (Neg-Trace); RBC,Urine 15-30 per hpf (0-3); Specific Gravity,Urine > 1.030 (1.010-1.025); Squamous Epithelial Cell,Urine Few per hpf (None-Few); Urobilinogen,Urine Normal (Normal); WBC,Urine 50-100 per hpf (0-3)
[2020-12-26] MEDS: Ipratropium 1 PUFF INHALER IH SCH ×4 (04:02→22:07)
[2020-12-26 05:48] LABS: Hemoglobin 13.2 g/dL (11.5-15.4); Mean Corpuscular Hemoglobin 30.5 pg (28.0-33.3); Mean Corpuscular Volume 92.4 fL (83.0-100.0); Mean Platelet Volume 10.2 fL (9.4-12.4); Platelet Count 264 K/mcL (140-400); Red Blood Count 4.33 M/mcL (3.82-4.97); Red Cell Distribution Width 12.9 % (11.5-14.5); White Blood Count 9.1 K/mcL (4.3-11.1)
[2020-12-26] MEDS: MethylPREDNISolone 40 MG/ML VIAL IVP SCH ×2 (06:04→14:31)
[2020-12-26 06:17] LABS: BUN/Creatinine Ratio 39 (6-26); Blood Urea Nitrogen 18 mg/dL (8-23); Calcium 9.3 mg/dL (8.6-10.3); Carbon Dioxide 34 mEq/L (23-29); Chloride 93 mEq/L (98-107); Glucose 114 mg/dL (70-105); Osmolality,Calculated 281 (280-300); Potassium 4.7 mEq/L (3.5-5.1); Sodium 134 mEq/L (136-145); eGFR For African Americans > 60 (> 60); eGFR For Non-African Americans > 60 (> 60)
[2020-12-26] MEDS: Apixaban 5 MG TABLET GTUBE SCH ×2 (08:19→19:57)
[2020-12-26] MEDS: Furosemide 40 MG/4 ML VIAL IVP SCH ×2 (08:20→19:57)
[2020-12-26] MEDS: clonazePAM 1 MG TABLET GTUBE SCH ×3 (08:20→19:58)
[2020-12-26] MEDS: Baclofen 10 MG TABLET GTUBE SCH ×2 (08:20→19:58)
[2020-12-26] MEDS ORDERED: Azithromycin 250 MG TABLET PO SCH (09:00)
[2020-12-26] MEDS ORDERED: Bisacodyl 10 MG RECTAL SUPPOSITORY RC PRN (13:30)
[2020-12-26] MEDS ORDERED: polyethylene glycoL 3350 17 GM POWD.PACK GTUBE PRN (13:30)
[2020-12-26] MEDS ORDERED: Ondansetron ODT 4 MG TAB.RAPDIS GTUBE PRN (13:30)
[2020-12-26] MEDS: HydrOXYzine SYP 10 MG/5 ML UDC GTUBE SCH (19:55)
[2020-12-26] MEDS: Valproic Acid Oral Soln 250 MG/5 ML UDC GTUBE SCH (19:56)
[2020-12-26] MEDS: Magnesium Oxide 400 MG TABLET GTUBE SCH (19:57)
[2020-12-26] MEDS: traZODone 50 MG TABLET GTUBE SCH (19:58)
[2020-12-26] MEDS: Melatonin 3 MG TABLET GTUBE SCH (19:58)
[2020-12-26] MEDS: Famotidine 20 MG TABLET GTUBE SCH (19:58)
[2020-12-27 01:12] LABS: Hematocrit 40.6 % (35.3-44.9); Hemoglobin 13.2 g/dL (11.5-15.4); Mean Corpuscular HGB Conc 32.5 g/dL (31.6-35.5); Mean Corpuscular Hemoglobin 29.5 pg (28.0-33.3); Mean Corpuscular Volume 90.6 fL (83.0-100.0); Mean Platelet Volume 10.4 fL (9.4-12.4); Platelet Count 285 K/mcL (140-400); Red Blood Count 4.48 M/mcL (3.82-4.97); White Blood Count 9.3 K/mcL (4.3-11.1)
[2020-12-27 01:36] LABS: Alanine Aminotransferase 14 Units/L (7-52); Albumin 3.4 g/dL (3.5-5.7); Albumin/Globulin Ratio 1.1 (1.1-2.2); Alkaline Phosphatase 55 Units/L (34-104); Aspartate Amino Transferase 16 Units/L (13-39); BUN/Creatinine Ratio 62 (6-26); Bilirubin,Total 0.5 mg/dL (0.3-1.0); Blood Urea Nitrogen 28 mg/dL (8-23); Calcium 9.3 mg/dL (8.6-10.3); Carbon Dioxide 34 mEq/L (23-29); Chloride 92 mEq/L (98-107); Globulin 3.1 g/dL (2.4-3.5); Glucose 126 mg/dL (70-105); Osmolality,Calculated 287 (280-300); Potassium 3.7 mEq/L (3.5-5.1); Sodium 135 mEq/L (136-145); Total Protein 6.5 g/dL (6.4-8.9); eGFR For African Americans > 60 (> 60); eGFR For Non-African Americans > 60 (> 60)
[2020-12-27] MEDS: Ipratropium 1 PUFF INHALER IH SCH ×4 (04:12→22:49)
[2020-12-27] MEDS: MethylPREDNISolone 40 MG/ML VIAL IVP SCH ×2 (05:24→17:28)
[2020-12-27] MEDS: HydrOXYzine SYP 10 MG/5 ML UDC GTUBE SCH ×2 (09:14→20:01)
[2020-12-27] MEDS: Potassium Chloride Elixir 20 MEQ/15 ML UDC GTUBE SCH (09:14)
[2020-12-27] MEDS: Valproic Acid Oral Soln 250 MG/5 ML UDC GTUBE SCH ×2 (09:14→20:00)
[2020-12-27] MEDS: Furosemide 40 MG/4 ML VIAL IVP SCH ×2 (09:16→20:05)
[2020-12-27] MEDS: Baclofen 10 MG TABLET GTUBE SCH ×2 (09:17→20:04)
[2020-12-27] MEDS: Magnesium Oxide 400 MG TABLET GTUBE SCH ×2 (09:18→20:03)
[2020-12-27] MEDS: clonazePAM 1 MG TABLET GTUBE SCH ×3 (09:18→20:03)
[2020-12-27] MEDS: Apixaban 5 MG TABLET GTUBE SCH ×2 (09:18→20:03)
[2020-12-27] MEDS: levoFLOXacin 750 MG/150 ML 750 MG/150 ML BAG IVPB SCH (09:18)
[2020-12-27] MEDS ORDERED: Isovue-370 500 ML BOTTLE IVP ONE (10:32)
[2020-12-27] MEDS: Famotidine 20 MG TABLET GTUBE SCH (20:03)
[2020-12-27] MEDS: Melatonin 3 MG TABLET GTUBE SCH (20:03)
[2020-12-27] MEDS: traZODone 50 MG TABLET GTUBE SCH (20:04)
[2020-12-28] MEDS: Ipratropium 1 PUFF INHALER IH SCH ×4 (03:57→21:27)
[2020-12-28] MEDS: MethylPREDNISolone 40 MG/ML VIAL IVP SCH ×2 (05:02→17:39)
[2020-12-28] MEDS ORDERED: Nystatin Cream 15 GM TUBE TP PRN (07:33)
[2020-12-28 08:13] LABS: Hematocrit 43.7 % (35.3-44.9); Hemoglobin 14.6 g/dL (11.5-15.4); Immature Granulocytes % 0.2 % (0-4); Lymphocytes % 11.2 %; Mean Corpuscular HGB Conc 33.4 g/dL (31.6-35.5); Mean Corpuscular Hemoglobin 30.2 pg (28.0-33.3); Mean Corpuscular Volume 90.5 fL (83.0-100.0); Mean Platelet Volume 10.2 fL (9.4-12.4); Monocytes # 0.4 K/mcL (0.0-1.3); Monocytes % 4.6 %; Neutrophils # 7.2 K/mcL (1.6-8.9); Platelet Count 316 K/mcL (140-400); Red Blood Count 4.83 M/mcL (3.82-4.97); Red Cell Distribution Width 13.1 % (11.5-14.5); White Blood Count 8.6 K/mcL (4.3-11.1)
[2020-12-28] MEDS: Dexmedetomidine HCl 400 MCG/100 ML MLS IVC SCH ×3 (08:24→12:02)
[2020-12-28 08:32] LABS: BUN/Creatinine Ratio 55 (6-26); Blood Urea Nitrogen 28 mg/dL (8-23); Calcium 9.4 mg/dL (8.6-10.3); Carbon Dioxide 36 mEq/L (23-29); Chloride 90 mEq/L (98-107); Glucose 213 mg/dL (70-105); Osmolality,Calculated 290 (280-300); Potassium 3.4 mEq/L (3.5-5.1); Sodium 134 mEq/L (136-145); eGFR For African Americans > 60 (> 60); eGFR For Non-African Americans > 60 (> 60)
[2020-12-28] MEDS: levoFLOXacin 750 MG/150 ML 750 MG/150 ML BAG IVPB SCH (08:51)
[2020-12-28] MEDS: Valproic Acid Oral Soln 250 MG/5 ML UDC GTUBE SCH ×2 (08:59→20:10)
[2020-12-28] MEDS: *HR* OxyCODONE Immed Rel 5 MG TABLET GTUBE PRN ×2 (08:59→17:39)
[2020-12-28] MEDS: Potassium Chloride Elixir 20 MEQ/15 ML UDC GTUBE SCH (09:00)
[2020-12-28] MEDS: HydrOXYzine SYP 10 MG/5 ML UDC GTUBE SCH ×2 (09:01→20:11)
[2020-12-28] MEDS: clonazePAM 1 MG TABLET GTUBE SCH ×3 (09:02→20:09)
[2020-12-28] MEDS: Magnesium Oxide 400 MG TABLET GTUBE SCH ×2 (09:02→20:09)
[2020-12-28] MEDS: Apixaban 5 MG TABLET GTUBE SCH ×2 (09:02→20:09)
[2020-12-28] MEDS: Furosemide 40 MG/4 ML VIAL IVP SCH ×2 (09:02→20:11)
[2020-12-28] MEDS: Baclofen 10 MG TABLET GTUBE SCH ×2 (09:02→20:09)
[2020-12-28] MEDS ORDERED: *HR* Digoxin 0.125 MG TABLET GTUBE SCH (13:30)
[2020-12-28] MEDS: Melatonin 3 MG TABLET GTUBE SCH (20:09)
[2020-12-28] MEDS: Famotidine 20 MG TABLET GTUBE SCH (20:09)
[2020-12-28] MEDS: traZODone 50 MG TABLET GTUBE SCH (20:09)
[2020-12-29 03:27] LABS: Hematocrit 38.2 % (35.3-44.9); Hemoglobin 13.1 g/dL (11.5-15.4); Immature Granulocytes % 0.9 % (0-4); Mean Corpuscular HGB Conc 34.3 g/dL (31.6-35.5)
[2020-12-29 03:29] LABS: Basophils % 0.2 %; Eosinophils % 0.1 %; Immature Platelets 5.7 % (1.1-6.1); Lymphocytes # 1.1 K/mcL (0.6-4.6); Lymphocytes % 12.4 %; Mean Corpuscular Hemoglobin 29.6 pg (28.0-33.3); Mean Corpuscular Volume 86.2 fL (83.0-100.0); Mean Platelet Volume 10.4 fL (9.4-12.4); Monocytes # 0.5 K/mcL (0.0-1.3); Platelet Count 241 K/mcL (140-400); Red Blood Count 4.43 M/mcL (3.82-4.97); Segmented Neutrophils % 80.4 %; White Blood Count 8.5 K/mcL (4.3-11.1)
[2020-12-29 03:31] LABS: Neutrophils # 6.8 K/mcL (1.6-8.9)
[2020-12-29 03:49] LABS: BUN/Creatinine Ratio 53 (6-26); Blood Urea Nitrogen 25 mg/dL (8-23); Calcium 8.9 mg/dL (8.6-10.3); Carbon Dioxide 34 mEq/L (23-29); Chloride 88 mEq/L (98-107); Glucose 208 mg/dL (70-105); Osmolality,Calculated 282 (280-300); Sodium 131 mEq/L (136-145); eGFR For African Americans > 60 (> 60); eGFR For Non-African Americans > 60 (> 60)
[2020-12-29] MEDS: Ipratropium 1 PUFF INHALER IH SCH ×3 (03:55→15:47)
[2020-12-29] MEDS: MethylPREDNISolone 40 MG/ML VIAL IVP SCH (05:30)
[2020-12-29] MEDS: clonazePAM 1 MG TABLET GTUBE SCH ×2 (10:08→13:59)
[2020-12-29] MEDS: Potassium Chloride Elixir 20 MEQ/15 ML UDC GTUBE SCH (10:08)
[2020-12-29] MEDS: HydrOXYzine SYP 10 MG/5 ML UDC GTUBE SCH (10:09)
[2020-12-29] MEDS: Baclofen 10 MG TABLET GTUBE SCH (10:10)
[2020-12-29] MEDS: Magnesium Oxide 400 MG TABLET GTUBE SCH (10:11)
[2020-12-29] MEDS: Apixaban 5 MG TABLET GTUBE SCH (10:11)
[2020-12-29] MEDS: Furosemide 40 MG/4 ML VIAL IVP SCH (10:12)
[2020-12-29] MEDS: levoFLOXacin 750 MG/150 ML 750 MG/150 ML BAG IVPB SCH (10:13)
[2020-12-29] MEDS: Dexmedetomidine HCl 400 MCG/100 ML MLS IVC SCH (11:22)
[2020-12-29] MEDS: Valproic Acid Oral Soln 250 MG/5 ML UDC GTUBE SCH (12:30)
[2020-12-29 18:55] VITALS: BP 127/96
== END 2020-12-29 19:32 ==
LOC: EMEROOARM 09:14 → 2NNU 09:14
PROVIDERS: ADMIT Student in an Organized Health Care Education/Training Program; ATTEND Student in an Organized Health Care Education/Training Program

== ENCOUNTER 2021-01-09 11:14 | Inpatient (IN) ==
[2021-01-09] MEDS ORDERED: 0.9 % Sodium Chloride 1,000 ML ONE (11:25)
[2021-01-09] MEDS: *HR* Etomidate 20 MG/10 ML AMPUL IVP ONE ×2 (11:28→13:50)
[2021-01-09] MEDS ORDERED: 0.9 % Sodium Chloride 1,000 ML IVC ONE (11:36)
[2021-01-09] MEDS ORDERED: Vancomycin 1,250 MG/262.5 ML IV.SOLN IVPB ONE (12:00)
[2021-01-09] MEDS ORDERED: Vancomycin (wt based) 1,000 MG VIAL IVPB SCH (12:00)
[2021-01-09 12:03] LABS: INR 1.4; Prothrombin Time 16.5 Seconds (9.4-12.1)
[2021-01-09 12:06] LABS: Activated Partial Thrombo Time 33.4 Seconds (26.0-36.0)
[2021-01-09] MEDS ORDERED: *HR* Rocuronium Bromide 50 MG/5 ML VIAL IVP ONE ×2 (12:06→15:41)
[2021-01-09] MEDS ORDERED: *HR* Etomidate 20 MG/10 ML AMPUL IVP ONE (12:06)
[2021-01-09 12:24] LABS: Alanine Aminotransferase 20 Units/L (7-52); Albumin 4.1 g/dL (3.5-5.7); Albumin/Globulin Ratio 1.5 (1.1-2.2); Alkaline Phosphatase 56 Units/L (34-104); Aspartate Amino Transferase 20 Units/L (13-39); BUN/Creatinine Ratio 27 (6-26); Bilirubin,Indirect 0.3 mg/dL (0.0-1.0); Bilirubin,Total 0.3 mg/dL (0.3-1.0); Blood Urea Nitrogen 20 mg/dL (8-23); Calcium 8.8 mg/dL (8.6-10.3); Carbon Dioxide 22 mEq/L (23-29); Chloride 98 mEq/L (98-107); Creatine Kinase 70 Units/L (30-223); Globulin 2.7 g/dL (2.4-3.5); Glucose 291 mg/dL (70-105); Osmolality,Calculated 287 (280-300); Potassium 6.1 mEq/L (3.5-5.1); Sodium 132 mEq/L (136-145); Total Protein 6.8 g/dL (6.4-8.9); Troponin I < 0.03 ng/mL (< 0.04); eGFR For African Americans > 60 (> 60); eGFR For Non-African Americans > 60 (> 60)
[2021-01-09 12:36] LABS: ABG Base Excess -5 mEq/L (-2 to 3); ABG HCO3 25 mEq/L (21-27); ABG Oxygen Saturation 83 % (95-98); ABG PCO2 71 mmHg (35-45); ABG PH 7.16 pH Units (7.32-7.45); ABG PO2 61 mmHg (85-104); ABG TCO2 27 mEq/L (20-26); Blood Gas Modality ASSIST CONTROL; Blood Gas VT 450 cc
[2021-01-09] MEDS: FentaNYL (PF) 1,000 MCG/100 ML IV.SOLN IVC SCH ×2 (12:45→22:20)
[2021-01-09] MEDS ORDERED: Insulin Human Regular 10 UNIT in 0.9 % Sodium Chloride 10 ML IV ONE (12:51)
[2021-01-09] MEDS ORDERED: *HR* Dextrose 50 % in Water (Vial) 50 ML VIAL IVP ONE (12:52)
[2021-01-09] MEDS ORDERED: Calcium Gluconate 1gm/50mL 1 GM/50 ML BAG IVPB ONE (12:52)
[2021-01-09 13:08] LABS: Thyroid Stimulating Hormone 8.482 mcIU/mL (0.340-5.600)
[2021-01-09 13:16] LABS: Basophils % 0.2 %; Hematocrit 40.3 % (35.3-44.9); Hemoglobin 12.3 g/dL (11.5-15.4); Immature Granulocytes % 0.9 % (0-4); Lymphocytes # 0.7 K/mcL (0.6-4.6); Lymphocytes % 3.8 %; Mean Corpuscular HGB Conc 30.5 g/dL (31.6-35.5); Mean Corpuscular Hemoglobin 29.9 pg (28.0-33.3); Mean Corpuscular Volume 98.1 fL (83.0-100.0); Mean Platelet Volume 9.8 fL (9.4-12.4); Monocytes # 0.7 K/mcL (0.0-1.3); Monocytes % 3.8 %; Neutrophils # 15.8 K/mcL (1.6-8.9); Nucleated Red Blood Cells 0.2 /100 WBC (0); Platelet Count 218 K/mcL (140-400); Red Blood Count 4.11 M/mcL (3.82-4.97); Red Cell Distribution Width 13.7 % (11.5-14.5); Segmented Neutrophils % 91.3 %; White Blood Count 17.3 K/mcL (4.3-11.1)
[2021-01-09] MEDS ORDERED: 0.9 % Sodium Chloride 250 ML ONE (13:22)
[2021-01-09] MEDS ORDERED: *HR* Norepinephrine 4 MG/4 ML VIAL IVC ONE (13:22)
[2021-01-09] MEDS: Piperacillin/Tazobactam 3.375 GM in 0.9 % Sodium Chloride Mini Bag 100 ML IVPB SCH ×2 (13:23→20:49)
[2021-01-09] MEDS: Norepinephrine 4 MG/254 ML IV.SOLN IVC SCH (13:42)
[2021-01-09] MEDS: *HR* Rocuronium Bromide 50 MG/5 ML VIAL IVP ONE ×2 (13:50→14:39)
[2021-01-09 14:20] LABS: Adenovirus Not Detected (Not Detect); Bordetella Pertussis Not Detected (Not Detect); Chlamydophila pneumoniae Not Detected (Not Detect); Coronavirus 229E Not Detected (Not Detect); Coronavirus HKU1 Not Detected (Not Detect); Coronavirus NL63 Not Detected (Not Detect); Coronavirus OC43 Not Detected (Not Detect); Human Metapneumovirus Not Detected (Not Detect); Human Rhinovirus/Enterovirus Not Detected (Not Detect); Influenza A Subtype 2009 H1 Not Detected (Not Detect); Influenza B Not Detected (Not Detect); Mycoplasma pneumoniae Not Detected (Not Detect); Parainfluenza Virus 1 Not Detected (Not Detect); Parainfluenza Virus 2 Not Detected (Not Detect); Parainfluenza Virus 3 Not Detected (Not Detect); Parainfluenza Virus 4 Not Detected (Not Detect); Respiratory Syncytial Virus Not Detected (Not Detect); SARS-CoV-2 Not Detected (Not Detect)
[2021-01-09 14:39] LABS: Bacteria,Urine Few per hpf (None-Few); Bilirubin,Urine Negative (Negative); Blood,Urine Trace (Negative); Clarity,Urine Turbid (Clear); Color,Urine Yellow (Yellow); Glucose,Urine (UA) Normal (Normal); Hyaline Casts,Urine Few per lpf (None Seen); Ketones,Urine Negative (Negative); Leukocyte Esterase,Urine Negative (Negative); Mucus,Urine Few per lpf (None-Few); Nitrite,Urine Negative (Negative); Protein,Urine 100 mg/dL (Neg-Trace); RBC,Urine TNTC per hpf (0-3); Specific Gravity,Urine 1.023 (1.010-1.025); Squamous Epithelial Cell,Urine Few per hpf (None-Few); Urobilinogen,Urine Normal (Normal); WBC,Urine 15-30 per hpf (0-3)
[2021-01-09] MEDS ORDERED: Artificial Tears SOLN 15 ML BOTTLE BOTH EYES PRN ×3 (15:42→16:58)
[2021-01-09] MEDS ORDERED: Artificial Tears SOLN 15 ML BOTTLE BOTH EYES SCH ×2 (16:00→20:00)
[2021-01-09] MEDS: Albuterol 2.5 MG/3 ML NEBULIZER IH SCH ×2 (16:21→20:05)
[2021-01-09 16:28] LABS: ABG Base Excess -1 mEq/L (-2 to 3); ABG HCO3 26 mEq/L (21-27); ABG Oxygen Saturation 98 % (95-98); ABG PCO2 51 mmHg (35-45); ABG PH 7.31 pH Units (7.32-7.45); ABG PO2 113 mmHg (85-104); ABG TCO2 27 mEq/L (20-26); Blood Gas Modality ASSIST CONTROL; Blood Gas VT 400 cc
[2021-01-09] MEDS: MethylPREDNISolone 40 MG/ML VIAL IVP SCH (17:23)
[2021-01-09] MEDS: Pantoprazole 40 MG VIAL IVP SCH (17:31)
[2021-01-09] MEDS: Chlorhexidine Rinse 15 ML MOUTHWASH MM SCH (20:59)
[2021-01-09] MEDS ORDERED: Chlorhexidine Rinse 15 ML MOUTHWASH MM SCH ×2 (21:00)
[2021-01-09] MEDS: Artificial Tears SOLN 15 ML BOTTLE BOTH EYES SCH (22:21)
[2021-01-10] MEDS: Albuterol 2.5 MG/3 ML NEBULIZER IH SCH ×6 (00:13→20:13)
[2021-01-10] MEDS ORDERED: 0.9 % Sodium Chloride 1,000 ML IVC ONE (00:20)
[2021-01-10] MEDS: Artificial Tears SOLN 15 ML BOTTLE BOTH EYES SCH ×7 (00:45→23:47)
[2021-01-10] MEDS: Norepinephrine 4 MG/254 ML IV.SOLN IVC SCH ×2 (00:46→17:50)
[2021-01-10] MEDS: Vancomycin 1,250 MG/262.5 ML IV.SOLN IVPB SCH ×2 (00:48→12:15)
[2021-01-10] MEDS ORDERED: Furosemide 20 MG/2 ML VIAL IVP ONE ×2 (01:13→08:46)
[2021-01-10] MEDS: FentaNYL (PF) 1,000 MCG/100 ML IV.SOLN IVC SCH ×4 (03:46→23:44)
[2021-01-10] MEDS: Piperacillin/Tazobactam 3.375 GM in 0.9 % Sodium Chloride Mini Bag 100 ML IVPB SCH ×3 (04:14→20:05)
[2021-01-10 04:37] LABS: ABG Base Excess 0 mEq/L (-2 to 3); ABG HCO3 24 mEq/L (21-27); ABG Oxygen Saturation 95 % (95-98); ABG PCO2 36 mmHg (35-45); ABG PH 7.43 pH Units (7.32-7.45); ABG PO2 71 mmHg (85-104); ABG TCO2 25 mEq/L (20-26); Blood Gas Modality ASSIST CONTROL; Blood Gas VT 400 cc
[2021-01-10] MEDS: DilTIAZem 50 MG in 0.9 % Sodium Chloride 40 ML IVC SCH ×3 (04:38→23:46)
[2021-01-10] MEDS: MethylPREDNISolone 40 MG/ML VIAL IVP SCH ×2 (05:10→17:40)
[2021-01-10 06:04] LABS: Basophils % 0.1 %; Hematocrit 35.5 % (35.3-44.9); Hemoglobin 11.5 g/dL (11.5-15.4); Immature Granulocytes % 0.5 % (0-4); Lymphocytes # 1.6 K/mcL (0.6-4.6); Lymphocytes % 8.2 %; Mean Corpuscular HGB Conc 32.4 g/dL (31.6-35.5); Mean Corpuscular Hemoglobin 30.2 pg (28.0-33.3); Mean Corpuscular Volume 93.2 fL (83.0-100.0); Mean Platelet Volume 10.5 fL (9.4-12.4); Monocytes # 0.8 K/mcL (0.0-1.3); Monocytes % 4.2 %; Neutrophils # 17.4 K/mcL (1.6-8.9); Platelet Count 204 K/mcL (140-400); Red Blood Count 3.81 M/mcL (3.82-4.97); Red Cell Distribution Width 13.7 % (11.5-14.5); White Blood Count 19.9 K/mcL (4.3-11.1)
[2021-01-10 06:28] LABS: BUN/Creatinine Ratio 33 (6-26); Blood Urea Nitrogen 24 mg/dL (8-23); Calcium 8.5 mg/dL (8.6-10.3); Carbon Dioxide 24 mEq/L (23-29); Chloride 103 mEq/L (98-107); Glucose 162 mg/dL (70-105); Osmolality,Calculated 294 (280-300); Phosphorous 3.9 mg/dL (2.7-4.5); Potassium 4.3 mEq/L (3.5-5.1); Sodium 138 mEq/L (136-145); eGFR For African Americans > 60 (> 60); eGFR For Non-African Americans > 60 (> 60)
[2021-01-10] MEDS: Pantoprazole 40 MG VIAL IVP SCH (09:37)
[2021-01-10] MEDS: Chlorhexidine Rinse 15 ML MOUTHWASH MM SCH ×2 (09:38→20:06)
[2021-01-10 12:46] LABS: BUN/Creatinine Ratio 31 (6-26); Blood Urea Nitrogen 22 mg/dL (8-23); Calcium 8.9 mg/dL (8.6-10.3); Carbon Dioxide 24 mEq/L (23-29); Chloride 102 mEq/L (98-107); Glucose 203 mg/dL (70-105); Osmolality,Calculated 295 (280-300); Sodium 138 mEq/L (136-145); eGFR For African Americans > 60 (> 60); eGFR For Non-African Americans > 60 (> 60)
[2021-01-10] MEDS: Dexmedetomidine HCl 400 MCG/100 ML MLS IVC SCH (23:46)
[2021-01-11] MEDS: Albuterol 2.5 MG/3 ML NEBULIZER IH SCH ×7 (00:15→23:14)
[2021-01-11] MEDS: Vancomycin 1,250 MG/262.5 ML IV.SOLN IVPB SCH ×2 (00:26→15:20)
[2021-01-11 01:17] LABS: BUN/Creatinine Ratio 47 (6-26); Blood Urea Nitrogen 22 mg/dL (8-23); Calcium 8.7 mg/dL (8.6-10.3); Carbon Dioxide 25 mEq/L (23-29); Chloride 104 mEq/L (98-107); Glucose 177 mg/dL (70-105); Magnesium 1.8 mg/dL (1.6-2.6); Osmolality,Calculated 296 (280-300); Phosphorous 2.5 mg/dL (2.7-4.5); Sodium 139 mEq/L (136-145); eGFR For African Americans > 60 (> 60); eGFR For Non-African Americans > 60 (> 60)
[2021-01-11] MEDS: Piperacillin/Tazobactam 3.375 GM in 0.9 % Sodium Chloride Mini Bag 100 ML IVPB SCH ×3 (03:09→19:34)
[2021-01-11] MEDS: Artificial Tears SOLN 15 ML BOTTLE BOTH EYES SCH ×5 (03:12→19:33)
[2021-01-11] MEDS ORDERED: FentaNYL (PF) 2,500 MCG/50 ML IV.SOLN IVC SCH (03:30)
[2021-01-11 03:34] LABS: Hematocrit 31.1 % (35.3-44.9); Hemoglobin 10.1 g/dL (11.5-15.4); Immature Granulocytes % 0.3 % (0-4); Lymphocytes # 0.5 K/mcL (0.6-4.6); Mean Corpuscular HGB Conc 32.5 g/dL (31.6-35.5); Mean Corpuscular Hemoglobin 30.2 pg (28.0-33.3); Mean Corpuscular Volume 93.1 fL (83.0-100.0); Mean Platelet Volume 10.4 fL (9.4-12.4); Monocytes # 0.3 K/mcL (0.0-1.3); Monocytes % 3.4 %; Neutrophils # 9.2 K/mcL (1.6-8.9); Platelet Count 175 K/mcL (140-400); Red Blood Count 3.34 M/mcL (3.82-4.97); Segmented Neutrophils % 91.3 %; White Blood Count 10.1 K/mcL (4.3-11.1)
[2021-01-11 04:52] LABS: ABG Base Excess 2 mEq/L (-2 to 3); ABG HCO3 27 mEq/L (21-27); ABG Oxygen Saturation 91 % (95-98); ABG PCO2 48 mmHg (35-45); ABG PH 7.36 pH Units (7.32-7.45); ABG PO2 65 mmHg (85-104); ABG TCO2 29 mEq/L (20-26); Blood Gas VT 400 cc
[2021-01-11] MEDS: MethylPREDNISolone 40 MG/ML VIAL IVP SCH (05:51)
[2021-01-11] MEDS: Pantoprazole 40 MG VIAL IVP SCH (07:48)
[2021-01-11] MEDS: DilTIAZem 50 MG in 0.9 % Sodium Chloride 40 ML IVC SCH ×2 (07:48→14:55)
[2021-01-11] MEDS: Chlorhexidine Rinse 15 ML MOUTHWASH MM SCH ×2 (07:51→20:48)
[2021-01-11] MEDS: Dexmedetomidine HCl 400 MCG/100 ML MLS IVC SCH ×2 (10:50→16:14)
[2021-01-11] MEDS ORDERED: Bisacodyl 10 MG RECTAL SUPPOSITORY RC PRN (11:09)
[2021-01-11] MEDS ORDERED: polyethylene glycoL 3350 17 GM POWD.PACK GTUBE PRN (11:09)
[2021-01-11] MEDS ORDERED: Ondansetron ODT 4 MG TAB.RAPDIS GTUBE PRN (11:09)
[2021-01-11] MEDS ORDERED: Nystatin Cream 15 GM TUBE TP PRN (11:09)
[2021-01-11] MEDS: Valproic Acid Oral Soln 250 MG/5 ML UDC GTUBE SCH ×2 (12:30→20:48)
[2021-01-11] MEDS: clonazePAM 1 MG TABLET GTUBE SCH ×2 (15:03→20:51)
[2021-01-11] MEDS: *HR* OxyCODONE Immed Rel 5 MG TABLET GTUBE SCH ×2 (15:04→20:52)
[2021-01-11] MEDS: HydrOXYzine SYP 10 MG/5 ML UDC GTUBE SCH (20:47)
[2021-01-11] MEDS: Docusate Oral Soln 100 MG/10 ML UDC GTUBE SCH (20:48)
[2021-01-11] MEDS: Apixaban 5 MG TABLET GTUBE SCH (20:50)
[2021-01-11] MEDS: Melatonin 3 MG TABLET GTUBE SCH (20:51)
[2021-01-11] MEDS: Magnesium Oxide 400 MG TABLET GTUBE SCH (20:51)
[2021-01-11] MEDS: Famotidine 20 MG TABLET GTUBE SCH (20:51)
[2021-01-11] MEDS: traZODone 50 MG TABLET GTUBE SCH (20:52)
[2021-01-11] MEDS: Sennosides 8.6 MG TABLET PO SCH (20:52)
[2021-01-11] MEDS ORDERED: Valproic Acid Oral Soln 250 MG/5 ML UDC GTUBE SCH (21:00)
[2021-01-11] MEDS ORDERED: Furosemide 20 MG/2 ML VIAL IVP ONE (21:47)
[2021-01-12] MEDS: Dexmedetomidine HCl 400 MCG/100 ML MLS IVC SCH ×3 (00:01→15:36)
[2021-01-12] MEDS: Artificial Tears SOLN 15 ML BOTTLE BOTH EYES SCH ×6 (00:15→20:11)
[2021-01-12] MEDS: DilTIAZem 50 MG in 0.9 % Sodium Chloride 40 ML IVC SCH ×3 (02:06→21:07)
[2021-01-12] MEDS: Vancomycin 1,250 MG/262.5 ML IV.SOLN IVPB SCH (02:58)
[2021-01-12 03:42] LABS: Basophils % 0.1 %; Eosinophils % 0.4 %; Hematocrit 31.4 % (35.3-44.9); Hemoglobin 9.8 g/dL (11.5-15.4); Immature Granulocytes % 0.3 % (0-4); Lymphocytes # 1.1 K/mcL (0.6-4.6); Lymphocytes % 10.2 %; Mean Corpuscular HGB Conc 31.2 g/dL (31.6-35.5); Mean Corpuscular Hemoglobin 29.4 pg (28.0-33.3); Mean Corpuscular Volume 94.3 fL (83.0-100.0); Mean Platelet Volume 10.5 fL (9.4-12.4); Monocytes # 0.5 K/mcL (0.0-1.3); Monocytes % 4.3 %; Neutrophils # 9.5 K/mcL (1.6-8.9); Nucleated Red Blood Cells 0.2 /100 WBC (0); Platelet Count 164 K/mcL (140-400); Red Blood Count 3.33 M/mcL (3.82-4.97); Segmented Neutrophils % 84.7 %; White Blood Count 11.2 K/mcL (4.3-11.1)
[2021-01-12] MEDS: Albuterol 2.5 MG/3 ML NEBULIZER IH SCH ×6 (04:03→23:17)
[2021-01-12 04:05] LABS: BUN/Creatinine Ratio 59 (6-26); Blood Urea Nitrogen 33 mg/dL (8-23); Calcium 8.6 mg/dL (8.6-10.3); Carbon Dioxide 33 mEq/L (23-29); Chloride 103 mEq/L (98-107); Glucose 147 mg/dL (70-105); Magnesium 1.9 mg/dL (1.6-2.6); Osmolality,Calculated 304 (280-300); Phosphorous 2.5 mg/dL (2.7-4.5); Potassium 3.8 mEq/L (3.5-5.1); Sodium 142 mEq/L (136-145); eGFR For African Americans > 60 (> 60); eGFR For Non-African Americans > 60 (> 60)
[2021-01-12] MEDS: Piperacillin/Tazobactam 3.375 GM in 0.9 % Sodium Chloride Mini Bag 100 ML IVPB SCH ×3 (04:20→20:12)
[2021-01-12] MEDS: Valproic Acid Oral Soln 250 MG/5 ML UDC GTUBE SCH ×2 (08:15→20:55)
[2021-01-12] MEDS: Potassium Chloride Elixir 20 MEQ/15 ML UDC GTUBE SCH (08:16)
[2021-01-12] MEDS: HydrOXYzine SYP 10 MG/5 ML UDC GTUBE SCH ×2 (08:17→23:00)
[2021-01-12] MEDS: Pantoprazole 40 MG VIAL IVP SCH (08:18)
[2021-01-12] MEDS: Magnesium Oxide 400 MG TABLET GTUBE SCH ×2 (08:18→20:56)
[2021-01-12] MEDS: Apixaban 5 MG TABLET GTUBE SCH ×2 (08:18→20:56)
[2021-01-12] MEDS: predniSONE 20 MG TABLET GTUBE SCH (08:18)
[2021-01-12] MEDS: clonazePAM 1 MG TABLET GTUBE SCH ×3 (08:18→20:56)
[2021-01-12] MEDS: *HR* OxyCODONE Immed Rel 5 MG TABLET GTUBE SCH ×3 (08:18→21:00)
[2021-01-12] MEDS: Sennosides 8.6 MG TABLET PO SCH ×2 (08:18→20:56)
[2021-01-12] MEDS: Furosemide 40 MG/4 ML VIAL IVP SCH ×2 (09:13→20:55)
[2021-01-12] MEDS: Docusate Oral Soln 100 MG/10 ML UDC GTUBE SCH ×2 (09:13→20:55)
[2021-01-12] MEDS ORDERED: *HR* Midazolam HCl 5 MG/5 ML VIAL IVP ONE (09:48)
[2021-01-12] MEDS ORDERED: *HR* Succinylcholine 200 MG/10 ML VIAL IVP ONE (09:48)
[2021-01-12] MEDS ORDERED: *HR* Rocuronium Bromide 50 MG/5 ML VIAL IVP ONE (09:48)
[2021-01-12] MEDS ORDERED: *HR* Etomidate 20 MG/10 ML AMPUL IVP ONE (09:48)
[2021-01-12] MEDS ORDERED: Artificial Tears SOLN 15 ML BOTTLE BOTH EYES PRN (10:20)
[2021-01-12] MEDS ORDERED: Ipratropium/Albuterol Neb 3 ML ONE (10:47)
[2021-01-12] MEDS: Ipratropium/Albuterol Neb 3 ML IH SCH ×4 (10:50→17:14)
[2021-01-12] MEDS: FentaNYL (PF) 1,000 MCG/100 ML IV.SOLN IVC SCH (10:56)
[2021-01-12] MEDS: Norepinephrine 4 MG/254 ML IV.SOLN IVC SCH (11:59)
[2021-01-12] MEDS ORDERED: Artificial Tears SOLN 15 ML BOTTLE BOTH EYES SCH (12:00)
[2021-01-12] MEDS ORDERED: *HR* Dextrose 50 % in Water (Syg) 50 ML SYRINGE ONE (12:36)
[2021-01-12 13:31] LABS: ABG Base Excess 9 mEq/L (-2 to 3); ABG HCO3 34 mEq/L (21-27); ABG Oxygen Saturation 100 % (95-98); ABG PCO2 49 mmHg (35-45); ABG PH 7.45 pH Units (7.32-7.45); ABG PO2 262 mmHg (85-104); ABG TCO2 35 mEq/L (20-26); Blood Gas Modality ASSIST CONTROL; Blood Gas VT 400 cc
[2021-01-12 15:49] LABS: BUN/Creatinine Ratio 52 (6-26); Blood Urea Nitrogen 32 mg/dL (8-23); Calcium 8.7 mg/dL (8.6-10.3); Carbon Dioxide 35 mEq/L (23-29); Chloride 100 mEq/L (98-107); Glucose 168 mg/dL (70-105); Osmolality,Calculated 303 (280-300); Potassium 3.8 mEq/L (3.5-5.1); Sodium 141 mEq/L (136-145); eGFR For African Americans > 60 (> 60); eGFR For Non-African Americans > 60 (> 60)
[2021-01-12] MEDS: Famotidine 20 MG TABLET GTUBE SCH (20:56)
[2021-01-12] MEDS: traZODone 50 MG TABLET GTUBE SCH (20:56)
[2021-01-12] MEDS: Chlorhexidine Rinse 15 ML MOUTHWASH MM SCH (20:57)
[2021-01-12] MEDS: Melatonin 3 MG TABLET GTUBE SCH (21:00)
[2021-01-12 21:58] LABS: Appearance of Body Fluid Hazy (Clear); Volume of Body Fluid 10 mL
[2021-01-13] MEDS: Albuterol 2.5 MG/3 ML NEBULIZER IH SCH ×6 (03:15→23:14)
[2021-01-13] MEDS: Artificial Tears SOLN 15 ML BOTTLE BOTH EYES SCH ×6 (04:00→20:36)
[2021-01-13 04:25] LABS: ABG Base Excess 9 mEq/L (-2 to 3); ABG HCO3 34 mEq/L (21-27); ABG Oxygen Saturation 98 % (95-98); ABG PCO2 44 mmHg (35-45); ABG PH 7.49 pH Units (7.32-7.45); ABG PO2 103 mmHg (85-104); ABG TCO2 35 mEq/L (20-26); Blood Gas VT 400 cc
[2021-01-13] MEDS: Piperacillin/Tazobactam 3.375 GM in 0.9 % Sodium Chloride Mini Bag 100 ML IVPB SCH (04:40)
[2021-01-13] MEDS: FentaNYL (PF) 1,000 MCG/100 ML IV.SOLN IVC SCH ×2 (05:01→17:45)
[2021-01-13] MEDS: DilTIAZem 50 MG in 0.9 % Sodium Chloride 40 ML IVC SCH ×2 (05:15→20:37)
[2021-01-13 05:55] LABS: BUN/Creatinine Ratio 52 (6-26); Basophils % 0.2 %; Blood Urea Nitrogen 32 mg/dL (8-23); Calcium 8.8 mg/dL (8.6-10.3); Carbon Dioxide 35 mEq/L (23-29); Chloride 101 mEq/L (98-107); Eosinophils # 0.1 K/mcL (0.0-0.6); Eosinophils % 1.1 %; Glucose 118 mg/dL (70-105); Hematocrit 32.8 % (35.3-44.9); Hemoglobin 10.1 g/dL (11.5-15.4); Immature Granulocytes % 0.8 % (0-4); Lymphocytes # 1.6 K/mcL (0.6-4.6); Lymphocytes % 19.2 %; Magnesium 2.1 mg/dL (1.6-2.6); Mean Corpuscular HGB Conc 30.8 g/dL (31.6-35.5); Mean Corpuscular Hemoglobin 29.2 pg (28.0-33.3); Mean Corpuscular Volume 94.8 fL (83.0-100.0); Mean Platelet Volume 10.6 fL (9.4-12.4); Monocytes # 0.5 K/mcL (0.0-1.3); Monocytes % 5.7 %; Nucleated Red Blood Cells 0.2 /100 WBC (0); Osmolality,Calculated 304 (280-300); Phosphorous 2.7 mg/dL (2.7-4.5); Platelet Count 194 K/mcL (140-400); Potassium 3.1 mEq/L (3.5-5.1); Red Blood Count 3.46 M/mcL (3.82-4.97); Red Cell Distribution Width 14.1 % (11.5-14.5); Sodium 143 mEq/L (136-145); White Blood Count 8.3 K/mcL (4.3-11.1); eGFR For African Americans > 60 (> 60); eGFR For Non-African Americans > 60 (> 60)
[2021-01-13] MEDS ORDERED: Potassium Chloride Elixir 20 MEQ/15 ML UDC GTUBE ONE (06:37)
[2021-01-13] MEDS: Potassium Chloride Elixir 20 MEQ/15 ML UDC GTUBE SCH (08:00)
[2021-01-13] MEDS: clonazePAM 1 MG TABLET GTUBE SCH ×3 (08:00→20:42)
[2021-01-13] MEDS: Valproic Acid Oral Soln 250 MG/5 ML UDC GTUBE SCH ×2 (08:01→20:42)
[2021-01-13] MEDS: Pantoprazole 40 MG VIAL IVP SCH (08:01)
[2021-01-13] MEDS: Chlorhexidine Rinse 15 ML MOUTHWASH MM SCH ×2 (08:01→20:41)
[2021-01-13] MEDS: Docusate Oral Soln 100 MG/10 ML UDC GTUBE SCH ×2 (08:01→20:42)
[2021-01-13] MEDS: Sennosides 8.6 MG TABLET PO SCH ×2 (08:02→20:42)
[2021-01-13] MEDS: Apixaban 5 MG TABLET GTUBE SCH ×2 (08:02→20:42)
[2021-01-13] MEDS: Furosemide 40 MG/4 ML VIAL IVP SCH ×2 (08:03→20:44)
[2021-01-13] MEDS: Magnesium Oxide 400 MG TABLET GTUBE SCH ×2 (08:03→20:42)
[2021-01-13] MEDS: predniSONE 20 MG TABLET GTUBE SCH (08:03)
[2021-01-13] MEDS: *HR* OxyCODONE Immed Rel 5 MG TABLET GTUBE SCH ×3 (08:04→20:37)
[2021-01-13] MEDS: HydrOXYzine SYP 10 MG/5 ML UDC GTUBE SCH ×2 (08:14→20:43)
[2021-01-13] MEDS: cefTRIAXone 1,000 MG in Water for inj. (sterile) 10 ML IVP SCH (08:35)
[2021-01-13] MEDS ORDERED: Amiodarone Premix 150 MG/100 ML BAG IVPB ONE (09:10)
[2021-01-13] MEDS ORDERED: Amiodarone Premix 360 MG/200 ML BAG IVC ONE (09:16)
[2021-01-13] MEDS ORDERED: Dextrose Gel 15 GM/37.5 ML TUBE PO PRN ×2 (10:56)
[2021-01-13] MEDS ORDERED: D5% in Water 1,000 ML IVC PRN (10:56)
[2021-01-13] MEDS ORDERED: *HR* Dextrose 50 % in Water (Vial) 50 ML VIAL IVP PRN (10:56)
[2021-01-13] MEDS: Insulin LISPRO 300 UNITS/3 ML VIAL SUBQ SCH ×3 (12:20→20:37)
[2021-01-13] MEDS: Amiodarone Premix 360 MG/200 ML BAG IVC SCH (15:46)
[2021-01-13] MEDS: Norepinephrine 4 MG/254 ML IV.SOLN IVC SCH (15:48)
[2021-01-13] MEDS: MethylPREDNISolone 40 MG/ML VIAL IVP SCH (17:04)
[2021-01-13] MEDS: Melatonin 3 MG TABLET GTUBE SCH (20:37)
[2021-01-13] MEDS: traZODone 50 MG TABLET GTUBE SCH (20:42)
[2021-01-13] MEDS: Famotidine 20 MG TABLET GTUBE SCH (20:42)
[2021-01-14] MEDS: Artificial Tears SOLN 15 ML BOTTLE BOTH EYES SCH ×6 (00:07→19:51)
[2021-01-14] MEDS: Insulin LISPRO 300 UNITS/3 ML VIAL SUBQ SCH ×6 (00:07→19:52)
[2021-01-14] MEDS: FentaNYL (PF) 2,500 MCG/50 ML IV.SOLN IVC SCH ×2 (00:59→10:23)
[2021-01-14] MEDS: Albuterol 2.5 MG/3 ML NEBULIZER IH SCH ×6 (03:20→23:22)
[2021-01-14] MEDS: Amiodarone Premix 360 MG/200 ML BAG IVC SCH ×2 (03:48→15:07)
[2021-01-14] MEDS: Dexmedetomidine HCl 400 MCG/100 ML MLS IVC SCH ×4 (03:56→20:02)
[2021-01-14] MEDS: DilTIAZem 50 MG in 0.9 % Sodium Chloride 40 ML IVC SCH ×2 (04:29→17:29)
[2021-01-14 04:37] LABS: Basophils % 0.2 %; Eosinophils # 0.1 K/mcL (0.0-0.6); Eosinophils % 0.8 %; Hematocrit 30.3 % (35.3-44.9); Hemoglobin 9.3 g/dL (11.5-15.4); Immature Granulocytes % 0.5 % (0-4); Lymphocytes # 1.1 K/mcL (0.6-4.6); Lymphocytes % 17.2 %; Mean Corpuscular HGB Conc 30.7 g/dL (31.6-35.5); Mean Corpuscular Hemoglobin 29.9 pg (28.0-33.3); Mean Corpuscular Volume 97.4 fL (83.0-100.0); Monocytes # 0.4 K/mcL (0.0-1.3); Monocytes % 5.9 %; Neutrophils # 4.7 K/mcL (1.6-8.9); Platelet Count 165 K/mcL (140-400); Red Blood Count 3.11 M/mcL (3.82-4.97); Red Cell Distribution Width 14.1 % (11.5-14.5); Segmented Neutrophils % 75.4 %; White Blood Count 6.2 K/mcL (4.3-11.1)
[2021-01-14 04:41] LABS: ABG Base Excess 15 mEq/L (-2 to 3); ABG HCO3 42 mEq/L (21-27); ABG Oxygen Saturation 93 % (95-98); ABG PCO2 69 mmHg (35-45); ABG PO2 72 mmHg (85-104); ABG TCO2 44 mEq/L (20-26); Blood Gas VT 350 cc
[2021-01-14 05:03] LABS: BUN/Creatinine Ratio 61 (6-26); Blood Urea Nitrogen 30 mg/dL (8-23); Calcium 8.5 mg/dL (8.6-10.3); Carbon Dioxide 37 mEq/L (23-29); Chloride 98 mEq/L (98-107); Glucose 149 mg/dL (70-105); Magnesium 2.1 mg/dL (1.6-2.6); Osmolality,Calculated 301 (280-300); Phosphorous 2.6 mg/dL (2.7-4.5); Potassium 3.6 mEq/L (3.5-5.1); Sodium 141 mEq/L (136-145); eGFR For African Americans > 60 (> 60); eGFR For Non-African Americans > 60 (> 60)
[2021-01-14] MEDS: MethylPREDNISolone 40 MG/ML VIAL IVP SCH ×2 (05:32→17:29)
[2021-01-14] MEDS: cefTRIAXone 1,000 MG in Water for inj. (sterile) 10 ML IVP SCH (07:26)
[2021-01-14] MEDS: Valproic Acid Oral Soln 250 MG/5 ML UDC GTUBE SCH ×2 (07:26→19:57)
[2021-01-14] MEDS: Furosemide 40 MG/4 ML VIAL IVP SCH ×2 (07:26→19:58)
[2021-01-14] MEDS: Docusate Oral Soln 100 MG/10 ML UDC GTUBE SCH ×2 (07:26→19:57)
[2021-01-14] MEDS: clonazePAM 1 MG TABLET GTUBE SCH ×3 (07:27→19:57)
[2021-01-14] MEDS: Apixaban 5 MG TABLET GTUBE SCH ×2 (07:27→19:58)
[2021-01-14] MEDS: Sennosides 8.6 MG TABLET PO SCH ×2 (07:28→19:58)
[2021-01-14] MEDS: Potassium Chloride Elixir 20 MEQ/15 ML UDC GTUBE SCH (07:28)
[2021-01-14] MEDS: Magnesium Oxide 400 MG TABLET GTUBE SCH ×2 (07:29→19:58)
[2021-01-14] MEDS: Chlorhexidine Rinse 15 ML MOUTHWASH MM SCH ×2 (07:29→19:57)
[2021-01-14] MEDS: *HR* OxyCODONE Immed Rel 5 MG TABLET GTUBE SCH ×3 (07:29→20:15)
[2021-01-14] MEDS: HydrOXYzine SYP 10 MG/5 ML UDC GTUBE SCH ×2 (07:29→19:57)
[2021-01-14] MEDS: Pantoprazole 40 MG VIAL IVP SCH (07:29)
[2021-01-14] MEDS: Norepinephrine 4 MG/254 ML IV.SOLN IVC SCH (17:29)
[2021-01-14] MEDS: traZODone 50 MG TABLET GTUBE SCH (19:58)
[2021-01-14] MEDS: Famotidine 20 MG TABLET GTUBE SCH (19:58)
[2021-01-14] MEDS: Melatonin 3 MG TABLET GTUBE SCH (20:15)
[2021-01-15] MEDS: Artificial Tears SOLN 15 ML BOTTLE BOTH EYES SCH ×6 (00:07→20:09)
[2021-01-15] MEDS: Insulin LISPRO 300 UNITS/3 ML VIAL SUBQ SCH ×6 (00:08→20:10)
[2021-01-15] MEDS: Dexmedetomidine HCl 400 MCG/100 ML MLS IVC SCH ×5 (01:15→22:34)
[2021-01-15] MEDS: Albuterol 2.5 MG/3 ML NEBULIZER IH SCH ×6 (03:32→23:53)
[2021-01-15] MEDS: Amiodarone Premix 360 MG/200 ML BAG IVC SCH ×2 (03:49→15:47)
[2021-01-15 04:12] LABS: ABG Base Excess 13 mEq/L (-2 to 3); ABG HCO3 38 mEq/L (21-27); ABG Oxygen Saturation 89 % (95-98); ABG PCO2 52 mmHg (35-45); ABG PH 7.47 pH Units (7.32-7.45); ABG PO2 55 mmHg (85-104); ABG TCO2 40 mEq/L (20-26); Blood Gas VT 350 cc
[2021-01-15] MEDS: FentaNYL (PF) 2,500 MCG/50 ML IV.SOLN IVC SCH (04:25)
[2021-01-15 04:39] LABS: Basophils % 0.2 %; Eosinophils # 0.1 K/mcL (0.0-0.6); Eosinophils % 0.6 %; Hematocrit 32.1 % (35.3-44.9); Hemoglobin 9.8 g/dL (11.5-15.4); Immature Granulocytes % 0.9 % (0-4); Lymphocytes # 1.8 K/mcL (0.6-4.6); Lymphocytes % 22.6 %; Mean Corpuscular HGB Conc 30.5 g/dL (31.6-35.5); Mean Corpuscular Hemoglobin 29.1 pg (28.0-33.3); Mean Corpuscular Volume 95.3 fL (83.0-100.0); Mean Platelet Volume 9.8 fL (9.4-12.4); Monocytes # 0.6 K/mcL (0.0-1.3); Monocytes % 7.4 %; Neutrophils # 5.6 K/mcL (1.6-8.9); Platelet Count 186 K/mcL (140-400); Red Blood Count 3.37 M/mcL (3.82-4.97); Red Cell Distribution Width 13.7 % (11.5-14.5); Segmented Neutrophils % 68.3 %; White Blood Count 8.1 K/mcL (4.3-11.1)
[2021-01-15 04:58] LABS: BUN/Creatinine Ratio 58 (6-26); Blood Urea Nitrogen 30 mg/dL (8-23); Calcium 8.5 mg/dL (8.6-10.3); Carbon Dioxide 40 mEq/L (23-29); Chloride 92 mEq/L (98-107); Glucose 152 mg/dL (70-105); Magnesium 2.4 mg/dL (1.6-2.6); Osmolality,Calculated 291 (280-300); Phosphorous 2.3 mg/dL (2.7-4.5); Potassium 3.8 mEq/L (3.5-5.1); Sodium 136 mEq/L (136-145); eGFR For African Americans > 60 (> 60); eGFR For Non-African Americans > 60 (> 60)
[2021-01-15] MEDS: MethylPREDNISolone 40 MG/ML VIAL IVP SCH ×2 (05:21→17:23)
[2021-01-15] MEDS: Chlorhexidine Rinse 15 ML MOUTHWASH MM SCH ×2 (07:34→20:12)
[2021-01-15] MEDS: Valproic Acid Oral Soln 250 MG/5 ML UDC GTUBE SCH ×2 (07:35→20:15)
[2021-01-15] MEDS: HydrOXYzine SYP 10 MG/5 ML UDC GTUBE SCH ×2 (07:36→20:17)
[2021-01-15] MEDS: clonazePAM 1 MG TABLET GTUBE SCH ×3 (07:37→20:14)
[2021-01-15] MEDS: Apixaban 5 MG TABLET GTUBE SCH ×2 (07:37→20:15)
[2021-01-15] MEDS: Sennosides 8.6 MG TABLET PO SCH ×2 (07:37→20:14)
[2021-01-15] MEDS: *HR* OxyCODONE Immed Rel 5 MG TABLET GTUBE SCH ×3 (07:37→20:12)
[2021-01-15] MEDS: Docusate Oral Soln 100 MG/10 ML UDC GTUBE SCH ×2 (07:38→20:25)
[2021-01-15] MEDS: Potassium Chloride Elixir 20 MEQ/15 ML UDC GTUBE SCH (07:38)
[2021-01-15] MEDS: Magnesium Oxide 400 MG TABLET GTUBE SCH ×2 (07:38→20:15)
[2021-01-15] MEDS: cefTRIAXone 1,000 MG in Water for inj. (sterile) 10 ML IVP SCH (07:40)
[2021-01-15] MEDS: Pantoprazole 40 MG VIAL IVP SCH (07:40)
[2021-01-15] MEDS: Furosemide 40 MG/4 ML VIAL IVP SCH ×2 (07:40→20:15)
[2021-01-15] MEDS: Norepinephrine 4 MG/254 ML IV.SOLN IVC SCH (11:27)
[2021-01-15] MEDS: Famotidine 20 MG TABLET GTUBE SCH (20:12)
[2021-01-15] MEDS: traZODone 50 MG TABLET GTUBE SCH (20:13)
[2021-01-15] MEDS: Melatonin 3 MG TABLET GTUBE SCH (20:14)
[2021-01-16] MEDS: Artificial Tears SOLN 15 ML BOTTLE BOTH EYES SCH ×3 (00:02→08:22)
[2021-01-16] MEDS: Albuterol 2.5 MG/3 ML NEBULIZER IH SCH ×7 (04:02→23:38)
[2021-01-16] MEDS: Amiodarone Premix 360 MG/200 ML BAG IVC SCH ×2 (04:09→16:45)
[2021-01-16] MEDS: Dexmedetomidine HCl 400 MCG/100 ML MLS IVC SCH (04:10)
[2021-01-16 04:47] LABS: Basophils % 0.4 %; Eosinophils % 0.3 %; Hematocrit 32.2 % (35.3-44.9); Hemoglobin 10.5 g/dL (11.5-15.4); Immature Granulocytes % 1.2 % (0-4); Lymphocytes # 1.7 K/mcL (0.6-4.6); Lymphocytes % 22.4 %; Mean Corpuscular HGB Conc 32.6 g/dL (31.6-35.5); Mean Corpuscular Hemoglobin 29.7 pg (28.0-33.3); Mean Corpuscular Volume 91.2 fL (83.0-100.0); Mean Platelet Volume 9.9 fL (9.4-12.4); Monocytes # 0.6 K/mcL (0.0-1.3); Monocytes % 8.5 %; Neutrophils # 5.1 K/mcL (1.6-8.9); Platelet Count 208 K/mcL (140-400); Red Blood Count 3.53 M/mcL (3.82-4.97); Red Cell Distribution Width 13.3 % (11.5-14.5); Segmented Neutrophils % 67.2 %; White Blood Count 7.6 K/mcL (4.3-11.1)
[2021-01-16 05:12] LABS: BUN/Creatinine Ratio 62 (6-26); Blood Urea Nitrogen 29 mg/dL (8-23); Calcium 8.8 mg/dL (8.6-10.3); Carbon Dioxide 40 mEq/L (23-29); Chloride 87 mEq/L (98-107); Glucose 187 mg/dL (70-105); Magnesium 2.1 mg/dL (1.6-2.6); Osmolality,Calculated 285 (280-300); Phosphorous 3.6 mg/dL (2.7-4.5); Sodium 132 mEq/L (136-145); eGFR For African Americans > 60 (> 60); eGFR For Non-African Americans > 60 (> 60)
[2021-01-16] MEDS: Insulin LISPRO 300 UNITS/3 ML VIAL SUBQ SCH ×6 (06:24→19:46)
[2021-01-16] MEDS: MethylPREDNISolone 40 MG/ML VIAL IVP SCH (06:25)
[2021-01-16] MEDS: Chlorhexidine Rinse 15 ML MOUTHWASH MM SCH (08:16)
[2021-01-16] MEDS: Valproic Acid Oral Soln 250 MG/5 ML UDC GTUBE SCH ×2 (08:16→19:54)
[2021-01-16] MEDS: HydrOXYzine SYP 10 MG/5 ML UDC GTUBE SCH ×2 (08:17→19:53)
[2021-01-16] MEDS: Potassium Chloride Elixir 20 MEQ/15 ML UDC GTUBE SCH (08:18)
[2021-01-16] MEDS: Docusate Oral Soln 100 MG/10 ML UDC GTUBE SCH ×2 (08:18→19:57)
[2021-01-16] MEDS: Pantoprazole 40 MG VIAL IVP SCH (08:19)
[2021-01-16] MEDS: cefTRIAXone 1,000 MG in Water for inj. (sterile) 10 ML IVP SCH (08:19)
[2021-01-16] MEDS: Furosemide 40 MG/4 ML VIAL IVP SCH (08:21)
[2021-01-16] MEDS: Magnesium Oxide 400 MG TABLET GTUBE SCH ×2 (08:21→19:56)
[2021-01-16] MEDS: Apixaban 5 MG TABLET GTUBE SCH ×2 (08:21→19:56)
[2021-01-16] MEDS: clonazePAM 1 MG TABLET GTUBE SCH ×3 (08:21→19:56)
[2021-01-16] MEDS: *HR* OxyCODONE Immed Rel 5 MG TABLET GTUBE SCH ×3 (08:21→21:26)
[2021-01-16] MEDS: Sennosides 8.6 MG TABLET PO SCH ×2 (08:21→19:57)
[2021-01-16] MEDS ORDERED: polyethylene glycoL 3350 17 GM POWD.PACK GTUBE PRN (11:49)
[2021-01-16] MEDS ORDERED: Bisacodyl 10 MG RECTAL SUPPOSITORY RC PRN (11:49)
[2021-01-16] MEDS ORDERED: *HR* Dextrose 50 % in Water (Vial) 50 ML VIAL IVP PRN (11:49)
[2021-01-16] MEDS ORDERED: Nystatin Cream 15 GM TUBE TP PRN (11:49)
[2021-01-16] MEDS ORDERED: Dextrose Gel 15 GM/37.5 ML TUBE PO PRN ×2 (11:49)
[2021-01-16] MEDS ORDERED: Ondansetron ODT 4 MG TAB.RAPDIS GTUBE PRN (11:49)
[2021-01-16] MEDS ORDERED: D5% in Water 1,000 ML IVC PRN (11:49)
[2021-01-16] MEDS: traZODone 50 MG TABLET GTUBE SCH (19:56)
[2021-01-16] MEDS: Famotidine 20 MG TABLET GTUBE SCH (19:56)
[2021-01-16] MEDS ORDERED: Melatonin 3 MG TABLET GTUBE SCH (21:00)
[2021-01-17] MEDS: Insulin LISPRO 300 UNITS/3 ML VIAL SUBQ SCH ×7 (03:26→23:21)
[2021-01-17] MEDS: Albuterol 2.5 MG/3 ML NEBULIZER IH SCH ×6 (03:36→23:21)
[2021-01-17 04:37] LABS: VBG Ionized Calcium 1.15 mmol/L (1.15-1.35)
[2021-01-17 04:37] LABS: Basophils # 0.1 K/mcL (0.0-0.2); Basophils % 0.6 %; Eosinophils # 0.2 K/mcL (0.0-0.6); Eosinophils % 1.2 %; Hemoglobin 11.3 g/dL (11.5-15.4); Immature Granulocytes % 2.2 % (0-4); Lymphocytes # 2.9 K/mcL (0.6-4.6); Lymphocytes % 23.1 %; Mean Corpuscular HGB Conc 31.4 g/dL (31.6-35.5); Mean Corpuscular Hemoglobin 28.8 pg (28.0-33.3); Mean Corpuscular Volume 91.8 fL (83.0-100.0); Mean Platelet Volume 10.2 fL (9.4-12.4); Monocytes # 1.1 K/mcL (0.0-1.3); Monocytes % 8.7 %; Neutrophils # 8.1 K/mcL (1.6-8.9); Nucleated Red Blood Cells 0.2 /100 WBC (0); Platelet Count 280 K/mcL (140-400); Red Blood Count 3.92 M/mcL (3.82-4.97); Red Cell Distribution Width 13.7 % (11.5-14.5); Segmented Neutrophils % 64.2 %
[2021-01-17 04:38] LABS: White Blood Count 12.6 K/mcL (4.3-11.1)
[2021-01-17 05:03] LABS: Alanine Aminotransferase 13 Units/L (7-52); Albumin 3.5 g/dL (3.5-5.7); Albumin/Globulin Ratio 1.3 (1.1-2.2); Alkaline Phosphatase 52 Units/L (34-104); Aspartate Amino Transferase 13 Units/L (13-39); BUN/Creatinine Ratio 72 (6-26); Bilirubin,Total 0.3 mg/dL (0.3-1.0); Blood Urea Nitrogen 31 mg/dL (8-23); Calcium 8.9 mg/dL (8.6-10.3); Carbon Dioxide 42 mEq/L (23-29); Chloride 86 mEq/L (98-107); Globulin 2.6 g/dL (2.4-3.5); Glucose 134 mg/dL (70-105); Magnesium 2.1 mg/dL (1.6-2.6); Osmolality,Calculated 285 (280-300); Phosphorous 3.3 mg/dL (2.7-4.5); Potassium 3.6 mEq/L (3.5-5.1); Sodium 133 mEq/L (136-145); Total Protein 6.1 g/dL (6.4-8.9); eGFR For African Americans > 60 (> 60); eGFR For Non-African Americans > 60 (> 60)
[2021-01-17] MEDS: Amiodarone Premix 360 MG/200 ML BAG IVC SCH ×2 (05:24→17:13)
[2021-01-17] MEDS ORDERED: Artificial Tears SOLN 15 ML BOTTLE BOTH EYES PRN (08:26)
[2021-01-17] MEDS: FentaNYL (PF) 1,000 MCG/100 ML IV.SOLN IVC SCH ×2 (08:36→17:11)
[2021-01-17] MEDS: predniSONE 20 MG TABLET GTUBE SCH (08:45)
[2021-01-17] MEDS: clonazePAM 1 MG TABLET GTUBE SCH ×3 (08:45→19:56)
[2021-01-17] MEDS: Magnesium Oxide 400 MG TABLET GTUBE SCH ×2 (08:45→19:56)
[2021-01-17] MEDS: HydrOXYzine SYP 10 MG/5 ML UDC GTUBE SCH ×2 (08:46→19:57)
[2021-01-17] MEDS: Docusate Oral Soln 100 MG/10 ML UDC GTUBE SCH ×2 (08:46→19:57)
[2021-01-17] MEDS: Sennosides 8.6 MG TABLET PO SCH ×2 (08:51→19:56)
[2021-01-17] MEDS: *HR* OxyCODONE Immed Rel 5 MG TABLET GTUBE SCH ×2 (08:51→14:24)
[2021-01-17] MEDS: cefTRIAXone 1,000 MG in Water for inj. (sterile) 10 ML IVP SCH (08:52)
[2021-01-17] MEDS ORDERED: MethylPREDNISolone 40 MG/ML VIAL IVP SCH (09:00)
[2021-01-17] MEDS: Chlorhexidine Rinse 15 ML MOUTHWASH MM SCH ×2 (09:18→19:56)
[2021-01-17] MEDS: Valproic Acid Oral Soln 250 MG/5 ML UDC GTUBE SCH ×2 (09:18→19:56)
[2021-01-17] MEDS: Pantoprazole 40 MG VIAL IVP SCH (09:18)
[2021-01-17] MEDS: Apixaban 5 MG TABLET GTUBE SCH (09:19)
[2021-01-17] MEDS: Dexmedetomidine HCl 400 MCG/100 ML MLS IVC SCH ×2 (09:34→17:11)
[2021-01-17] MEDS: Artificial Tears SOLN 15 ML BOTTLE BOTH EYES SCH ×4 (11:15→23:21)
[2021-01-17 11:28] LABS: ABG Base Excess 15 mEq/L (-2 to 3); ABG HCO3 39 mEq/L (21-27); ABG Oxygen Saturation 95 % (95-98); ABG PCO2 47 mmHg (35-45); ABG PH 7.53 pH Units (7.32-7.45); ABG PO2 69 mmHg (85-104); ABG TCO2 41 mEq/L (20-26); Blood Gas VT 350 cc
[2021-01-17] MEDS ORDERED: *HR* Etomidate 20 MG/10 ML AMPUL IVP ONE (11:29)
[2021-01-17] MEDS ORDERED: *HR* Midazolam HCl 5 MG/5 ML VIAL IVP ONE (11:29)
[2021-01-17] MEDS ORDERED: *HR* Propofol 200 MG/20 ML VIAL IVP ONE (11:29)
[2021-01-17] MEDS: Norepinephrine 4 MG/254 ML IV.SOLN IVC SCH (17:16)
[2021-01-17] MEDS: Famotidine 20 MG TABLET GTUBE SCH (19:56)
[2021-01-17] MEDS: traZODone 50 MG TABLET GTUBE SCH (19:56)
[2021-01-17] MEDS ORDERED: *HR* Heparin 5,000 UNIT/ML VIAL IVP PRN ×2 (20:13)
[2021-01-17] MEDS ORDERED: Heparin 25,000UNIT/250ML 1/2NS 25,000 UNIT/250 ML IV.SOLN IVC SCH (20:15)
[2021-01-17 21:01] LABS: Hematocrit 30.7 % (35.3-44.9); Hemoglobin 9.9 g/dL (11.5-15.4); Mean Corpuscular HGB Conc 32.2 g/dL (31.6-35.5); Mean Corpuscular Hemoglobin 29.8 pg (28.0-33.3); Mean Corpuscular Volume 92.5 fL (83.0-100.0); Mean Platelet Volume 9.9 fL (9.4-12.4); Platelet Count 198 K/mcL (140-400); Red Blood Count 3.32 M/mcL (3.82-4.97); Red Cell Distribution Width 13.3 % (11.5-14.5); White Blood Count 8.3 K/mcL (4.3-11.1)
[2021-01-17 21:07] LABS: Heparin anti-factor XA UFH 0.16 IU/mL (0.30-0.70)
[2021-01-17 21:08] LABS: INR 1.2; Prothrombin Time 13.3 Seconds (9.4-12.1)
[2021-01-18] MEDS: Dexmedetomidine HCl 400 MCG/100 ML MLS IVC SCH ×4 (00:50→23:50)
[2021-01-18] MEDS: Insulin LISPRO 300 UNITS/3 ML VIAL SUBQ SCH ×5 (03:35→19:44)
[2021-01-18] MEDS: Artificial Tears SOLN 15 ML BOTTLE BOTH EYES SCH ×5 (03:36→19:43)
[2021-01-18] MEDS: Albuterol 2.5 MG/3 ML NEBULIZER IH SCH ×6 (03:37→23:40)
[2021-01-18 03:54] LABS: Basophils % 0.2 %; Eosinophils % 0.4 %; Hematocrit 31.7 % (35.3-44.9); Hemoglobin 10.1 g/dL (11.5-15.4); Immature Granulocytes % 1.7 % (0-4); Lymphocytes # 0.8 K/mcL (0.6-4.6); Lymphocytes % 10.2 %; Mean Corpuscular HGB Conc 31.9 g/dL (31.6-35.5); Mean Corpuscular Hemoglobin 29.8 pg (28.0-33.3); Mean Corpuscular Volume 93.5 fL (83.0-100.0); Mean Platelet Volume 10.2 fL (9.4-12.4); Monocytes # 0.5 K/mcL (0.0-1.3); Monocytes % 5.4 %; Neutrophils # 6.8 K/mcL (1.6-8.9); Platelet Count 211 K/mcL (140-400); Red Blood Count 3.39 M/mcL (3.82-4.97); Red Cell Distribution Width 13.3 % (11.5-14.5); Segmented Neutrophils % 82.1 %; White Blood Count 8.3 K/mcL (4.3-11.1)
[2021-01-18 04:11] LABS: BUN/Creatinine Ratio 57 (6-26); Blood Urea Nitrogen 27 mg/dL (8-23); Calcium 8.4 mg/dL (8.6-10.3); Carbon Dioxide 39 mEq/L (23-29); Chloride 87 mEq/L (98-107); Glucose 219 mg/dL (70-105); Magnesium 1.9 mg/dL (1.6-2.6); Osmolality,Calculated 284 (280-300); Phosphorous 3.6 mg/dL (2.7-4.5); Potassium 3.6 mEq/L (3.5-5.1); Sodium 131 mEq/L (136-145); eGFR For African Americans > 60 (> 60); eGFR For Non-African Americans > 60 (> 60)
[2021-01-18 04:23] LABS: ABG Base Excess 9 mEq/L (-2 to 3); ABG HCO3 34 mEq/L (21-27); ABG Oxygen Saturation 95 % (95-98); ABG PCO2 51 mmHg (35-45); ABG PH 7.44 pH Units (7.32-7.45); ABG PO2 75 mmHg (85-104); ABG TCO2 36 mEq/L (20-26); Blood Gas VT 350 cc
[2021-01-18] MEDS: FentaNYL (PF) 1,000 MCG/100 ML IV.SOLN IVC SCH ×3 (05:05→23:40)
[2021-01-18] MEDS: Amiodarone Premix 360 MG/200 ML BAG IVC SCH ×2 (06:14→19:35)
[2021-01-18] MEDS: HydrOXYzine SYP 10 MG/5 ML UDC GTUBE SCH ×2 (08:36→19:43)
[2021-01-18] MEDS: Pantoprazole 40 MG VIAL IVP SCH (08:36)
[2021-01-18] MEDS: Chlorhexidine Rinse 15 ML MOUTHWASH MM SCH ×2 (08:37→19:42)
[2021-01-18] MEDS: Docusate Oral Soln 100 MG/10 ML UDC GTUBE SCH ×2 (08:37→19:43)
[2021-01-18] MEDS: Valproic Acid Oral Soln 250 MG/5 ML UDC GTUBE SCH ×2 (08:37→19:43)
[2021-01-18] MEDS: predniSONE 20 MG TABLET GTUBE SCH (08:38)
[2021-01-18] MEDS: Sennosides 8.6 MG TABLET PO SCH ×2 (08:38→19:43)
[2021-01-18] MEDS: Magnesium Oxide 400 MG TABLET GTUBE SCH ×2 (08:38→19:43)
[2021-01-18] MEDS: clonazePAM 1 MG TABLET GTUBE SCH ×3 (08:38→19:43)
[2021-01-18] MEDS: cefTRIAXone 1,000 MG in Water for inj. (sterile) 10 ML IVP SCH (08:38)
[2021-01-18] MEDS: Norepinephrine 4 MG/254 ML IV.SOLN IVC SCH (08:40)
[2021-01-18] MEDS: Famotidine 20 MG TABLET GTUBE SCH (19:43)
[2021-01-18] MEDS: traZODone 50 MG TABLET GTUBE SCH (19:43)
[2021-01-19] MEDS: Artificial Tears SOLN 15 ML BOTTLE BOTH EYES SCH ×5 (00:02→15:35)
[2021-01-19] MEDS: Insulin LISPRO 300 UNITS/3 ML VIAL SUBQ SCH ×5 (00:02→16:15)
[2021-01-19] MEDS: Heparin 25,000UNIT/250ML 1/2NS 25,000 UNIT/250 ML IV.SOLN IVC SCH ×2 (01:10→18:15)
[2021-01-19] MEDS: Albuterol 2.5 MG/3 ML NEBULIZER IH SCH ×4 (03:46→15:36)
[2021-01-19 04:00] LABS: Basophils % 0.3 %; Eosinophils % 0.3 %; Hematocrit 28.9 % (35.3-44.9); Hemoglobin 9.2 g/dL (11.5-15.4); Immature Granulocytes % 1.4 % (0-4); Lymphocytes # 1.2 K/mcL (0.6-4.6); Lymphocytes % 10.8 %; Mean Corpuscular HGB Conc 31.8 g/dL (31.6-35.5); Mean Corpuscular Volume 91.2 fL (83.0-100.0); Mean Platelet Volume 10.2 fL (9.4-12.4); Monocytes # 0.8 K/mcL (0.0-1.3); Monocytes % 7.8 %; Neutrophils # 8.6 K/mcL (1.6-8.9); Platelet Count 206 K/mcL (140-400); Red Blood Count 3.17 M/mcL (3.82-4.97); Red Cell Distribution Width 13.6 % (11.5-14.5); Segmented Neutrophils % 79.4 %; White Blood Count 10.8 K/mcL (4.3-11.1)
[2021-01-19] MEDS: FentaNYL (PF) 1,000 MCG/100 ML IV.SOLN IVC SCH ×2 (04:05→10:53)
[2021-01-19 04:19] LABS: BUN/Creatinine Ratio 51 (6-26); Blood Urea Nitrogen 20 mg/dL (8-23); Calcium 8.3 mg/dL (8.6-10.3); Carbon Dioxide 39 mEq/L (23-29); Chloride 90 mEq/L (98-107); Glucose 173 mg/dL (70-105); Osmolality,Calculated 285 (280-300); Potassium 3.5 mEq/L (3.5-5.1); Sodium 134 mEq/L (136-145); eGFR For African Americans > 60 (> 60); eGFR For Non-African Americans > 60 (> 60)
[2021-01-19 04:45] LABS: ABG Base Excess 9 mEq/L (-2 to 3); ABG HCO3 36 mEq/L (21-27); ABG Oxygen Saturation 94 % (95-98); ABG PCO2 56 mmHg (35-45); ABG PH 7.42 pH Units (7.32-7.45); ABG PO2 71 mmHg (85-104); ABG TCO2 38 mEq/L (20-26); Blood Gas Modality ASSIST CONTROL; Blood Gas VT 400 cc
[2021-01-19] MEDS: Amiodarone Premix 360 MG/200 ML BAG IVC SCH (07:45)
[2021-01-19] MEDS: Norepinephrine 4 MG/254 ML IV.SOLN IVC SCH (08:00)
[2021-01-19] MEDS: Pantoprazole 40 MG VIAL IVP SCH (09:09)
[2021-01-19] MEDS: cefTRIAXone 1,000 MG in Water for inj. (sterile) 10 ML IVP SCH (09:09)
[2021-01-19] MEDS: Chlorhexidine Rinse 15 ML MOUTHWASH MM SCH (09:09)
[2021-01-19] MEDS: Magnesium Oxide 400 MG TABLET GTUBE SCH (09:10)
[2021-01-19] MEDS: HydrOXYzine SYP 10 MG/5 ML UDC GTUBE SCH (09:10)
[2021-01-19] MEDS: clonazePAM 1 MG TABLET GTUBE SCH ×2 (09:10→15:34)
[2021-01-19] MEDS: Valproic Acid Oral Soln 250 MG/5 ML UDC GTUBE SCH ×2 (09:10→20:35)
[2021-01-19] MEDS: Docusate Oral Soln 100 MG/10 ML UDC GTUBE SCH (09:10)
[2021-01-19] MEDS: Sennosides 8.6 MG TABLET PO SCH (09:10)
[2021-01-19] MEDS: predniSONE 20 MG TABLET GTUBE SCH (09:11)
[2021-01-19] MEDS: Dexmedetomidine HCl 400 MCG/100 ML MLS IVC SCH ×2 (09:29→13:31)
[2021-01-19] MEDS ORDERED: Glycopyrrolate 0.2 MG/ML VIAL IVP ONE (15:53)
[2021-01-19] MEDS ORDERED: *HR* LORazepam 2 MG/ML VIAL IVP PRN (15:55)
[2021-01-19] MEDS ORDERED: Cefepime HCl 2,000 MG in 0.9 % Sodium Chloride Mini Bag 100 ML IVPB SCH (16:00)
[2021-01-19] MEDS: Atropine 1% Opth Drops 100 DROP/5 ML BOTTLE SL PRN ×2 (16:14→18:22)
[2021-01-19] MEDS: *HR* FentaNYL (PF) 100 MCG/2 ML VIAL IVP PRN ×3 (18:05→21:50)
[2021-01-19] MEDS ORDERED: FentaNYL (PF) 1,000 MCG/100 ML IV.SOLN IVC SCH (23:30)
[2021-01-20] MEDS ORDERED: Atropine 1% Opth Drops 100 DROP/5 ML BOTTLE SL PRN ×2 (00:11→09:05)
[2021-01-20] MEDS ORDERED: Artificial Tears SOLN 15 ML BOTTLE BOTH EYES PRN (00:11)
[2021-01-20] MEDS ORDERED: *HR* FentaNYL (PF) 100 MCG/2 ML VIAL IVP PRN ×2 (00:11→05:06)
[2021-01-20] MEDS ORDERED: FentaNYL (PF) 1,000 MCG/100 ML IV.SOLN IVC SCH (00:11)
[2021-01-20] MEDS ORDERED: Nystatin Cream 15 GM TUBE TP PRN (00:11)
[2021-01-20] MEDS: Valproic Acid Oral Soln 250 MG/5 ML UDC GTUBE SCH ×2 (00:41→09:21)
[2021-01-20] MEDS: *HR* LORazepam 2 MG/ML VIAL IVP PRN ×5 (01:17→09:02)
[2021-01-20] MEDS ORDERED: *HR* FentaNYL (PF) 100 MCG/2 ML VIAL IVP ONE (01:32)
[2021-01-20] MEDS ORDERED: Scopolamine Patch 1.5 MG PATCH.TD72 TD SCH (01:45)
[2021-01-20] MEDS ORDERED: Haloperidol Lactate 5 MG/ML VIAL IVP ONE (02:18)
[2021-01-20] MEDS ORDERED: Morphine Sulfate 2 MG/ML SYRINGE IVP ONE (04:02)
[2021-01-20] MEDS: FentaNYL (PF) 1,000 MCG/100 ML IV.SOLN IVC SCH ×2 (04:14→11:12)
[2021-01-20] MEDS ORDERED: Haloperidol Lactate 5 MG/ML VIAL IVP PRN ×2 (05:01→05:59)
[2021-01-20] MEDS: *HR* FentaNYL (PF) 100 MCG/2 ML VIAL IVP PRN ×7 (06:14→10:41)
[2021-01-20] MEDS ORDERED: EPINEPHrine 1 MG/ML VIAL IM ONE (08:59)
[2021-01-20] MEDS ORDERED: MethylPREDNISolone 40 MG/ML VIAL IVP SCH (09:00)
[2021-01-20] MEDS ORDERED: Acetaminophen 650 MG RECTAL SUPP RC PRN (09:13)
[2021-01-20] MEDS ORDERED: Glycopyrrolate 0.2 MG/ML VIAL IVP ONE (10:17)
[2021-01-20 11:58] VITALS: BP 88/58
== END 2021-01-20 11:34 | disposition expired | DRG 871 ==
LOC: EMEROOARM 11:14 → ICNU 14:28 → SUATTDRO 14:28 → ICNU 15:41 → 2ANU 01-19 21:36
PROVIDERS: ADMIT Family Medicine; ATTEND Student in an Organized Health Care Education/Training Program